=== PATIENT | female | born 1945 | race Caucasian/White ===

== ENCOUNTER 2018-03-25 09:54 | Emergency (ER) | payer MEDICARE ==
[2018-03-25] MEDS ORDERED: MECLIZINE HCL 12.5 MG TAB ONE (10:24)
[2018-03-25] MEDS ORDERED: NA CHLORIDE 0.9% 500 ML ONE (10:24)
--- NOTE | 2018-03-25 10:47 | RAD REPORT ---
EXAM DESCRIPTION: CT - Head Brain Wo Cont - 03/25/2018 10:36 am CLINICAL HISTORY: Dizziness for 1 week COMPARISON: none TECHNIQUE: Computed axial tomography of the head was obtained. IV contrast was not requested. All CT scans are performed using dose optimization technique as appropriate and may include automated exposure control or mA/KV adjustment according to patient size. FINDINGS: An intracranial bleed is not seen . The ventricles are normal in caliber. No extra-axial fluid collection is noted. Mild to moderate low-density areas within periventricular, deep and subcortical white matter likely represent ischemic changes secondary to small vessel disease . Fluid within the sinuses/ mastoids is not seen. IMPRESSION: No acute intracranial abnormality is seen. If patient's symptoms persist MRI of the bra in would be recommended.
[2018-03-25 10:50] LABS: Absolute Lymphocytes (CBC) 3.7 K/uL (0.7-4.9); Absolute Monocytes 1.1 K/uL (0.1-1.3); Absolute Neutrophil 6.2 K/uL (1.8-8.0); Basophils % 0.8 % (0-1.3); Eosinophils % 3.9 % (0-4.4); Hematocrit 34.9 % (36.0-45.0); Lymphocytes % 32.1 % (15.3-44.8); MCH 30.2 pg (27.0-35.0); MCV 89.3 fL (80-100); MPV 8.1 fL (7.6-11.3); Monocytes % 9.5 % (3.3-12.3); RBC Red Blood Cell Count 3.91 M/uL (3.86-4.86)
[2018-03-25 10:58] LABS: Protime INR 0.99
[2018-03-25 11:04] LABS: Potassium 4.2 mEq/L (3.6-5.0)
[2018-03-25 11:05] LABS: Magnesium 1.6 mg/dL (1.8-2.5)
[2018-03-25 11:48] LABS: Urine Blood NEGATIVE (NEG); Urine Glucose NEGATIVE (NEG); Urine Protein NEGATIVE (NEG); Urine Specific Gravity 1.015 (1.005-1.030); Urine pH 5.5 (5.0-7.0)
[2018-03-25] MEDS ORDERED: MAGNESIUM SULFATE 1 gm IVPB 1 GM/100 ML BAG IV ONE (12:14)
--- NOTE | 2018-03-25 12:21 | EDPHYS ---
Physician Documentation [facility] Name: Marilynn Hartman Age: 72 yrs Sex: Female : 1945 Arrival Date: 03/25/2018 Time: 09:57 Bed 7 Private MD: Gino Cruz ED Physician Franki Romero HPI: 03/25 11:06 This 72 yrs old Female presents to ER via Ambulatory with complaints of rn Dizziness. 11:06 The patient presents with dizziness, feeling off balance. Onset: The symptoms/episode rn began/occurred 1 week(s) ago. Modifying factors: The symptoms are alleviated by nothing, the symptoms are aggravated by movement of head, standing up, changing position. Severity of symptoms: At their worst the symptoms were mild in the emergency department the symptoms are unchanged. The patient has experienced a previous episode. Reports dizziness, feels like off balance, intermittent, lasts for a minute or so, worse with change in head position, no trauma, no other focal neurological complaint, no chest pain/sob/vomiting/diarrhea/abd pain. Has had vertigo in past and feels similar. . Historical: - Allergies: 10:11 Bactrim; aj 10:11 Biaxin; aj 10:11 Yvarzct-Exe-Pkh Reductase Inhibitors; aj - Home Meds: 10:11 losartan 50 mg Oral tab 1 tab 2 times per day [Active]; amlodipine 2.5 mg tab 1 tab aj once daily [Active]; metformin 500 mg Oral TbER 1 tab twice a day [Active]; atenolol 100 mg oral tab [Active]; omeprazole 40 mg Oral cpDR 1 cap once daily [Active]; - PMHx: 10:11 Anxiety; Diabetes - NIDDM; High Cholesterol; Hypertension; aj - PSHx: 10:11 Cholecystectomy; Appendectomy; Tonsillectomy; Hysterectomy; aj - Immunization history:: Adult Immunizations up to date. - Social history:: Smoking status: Patient/guardian denies using tobacco. - Ebola Screening: : Patient negative for fever greater than or equal to 101.5 degrees Fahrenheit, and additional compatible Ebola Virus Disease symptoms Patient denies exposure to infectious person Patient denies travel to an Ebola-affected area in the 21 days before illness onset No symptoms or risks identified at this time. - Family history:: not pertinent. - Hospitalizations: : No recent hospitalization is reported. ROS: 11:06 Constitutional: Negative for fever, chills, and weight loss, Eyes: Negative for injury, rn pain, redness, and discharge, Neck: Negative for injury, pain, and swelling, Cardiovascular: Negative for chest pain, palpitations, and edema, Respiratory: Negative for shortness of breath, cough, wheezing, and pleuritic chest pain, Abdomen/GI: Negative for abdominal pain, nausea, vomiting, diarrhea, and constipation, Back: Negative for injury and pain, MS/Extremity: Negative for injury and deformity, Skin: Negative for injury, rash, and discoloration, Neuro: Negative for headache, weakness, numbness, tingling, and seizure. Exam: 11:06 Constitutional: This is a well developed, well nourished patient who is awake, alert, rn and in no acute distress. Head/Face: Normocephalic, atraumatic. Eyes: Pupils equal round and reactive to light, extra-ocular motions intact. Lids and lashes normal. Conjunctiva and sclera are non-icteric and not injected. Cornea within normal limits. Periorbital areas with no swelling, redness, or edema. Neck: Trachea midline, no thyromegaly or masses palpated, and no cervical lymphadenopathy. Supple, full range of motion without nuchal rigidity, or vertebral point tenderness. No Meningismus. Cardiovascular: Regular rate and rhythm with a normal S1 and S2. No gallops, murmurs, or rubs. Normal PMI, no JVD. No pulse deficits. Respiratory: Lungs have equal breath sounds bilaterally, clear to auscultation and percussion. No rales, rhonchi or wheezes noted. No increased work of breathing, no retractions or nasal flaring. Abdomen/GI: Soft, non-tender, with normal bowel sounds. No distension or tympany. No guarding or rebound. No evidence of tenderness throughout. MS/ Extremity: Pulses equal, no cyanosis. Neurovascular intact. Full, normal range of motion. Equal circumference. Neuro: Awake and alert, GCS 15, oriented to person, place, time, and situation. Cranial nerves II-XII grossly intact. Motor strength 5/5 in all extremities. Sensory grossly intact. Cerebellar exam normal. Normal gait. Vital Signs: 10:11 BP 157 / 80; Pulse 72; Resp 18; Temp 98.4; Pulse Ox 96% on R/A; Weight 90.72 kg; Height aj 5 ft. 4 in. (162.56 cm); 11:11 BP 127 / 68; Pulse 93; Resp 16; Pulse Ox 96% on R/A; aj 14:30 BP 134 / 65; Pulse 82; Resp 16; Pulse Ox 96% ; jl7 10:11 Body Mass Index 34.33 (90.72 kg, 162.56 cm) aj MDM: 10:05 Patient medically screened. rn 12:09 ED course: Pt improved, walking without assistance to bathroom, w/u negative, most rn consistent with peripheral vertigo, will dc home with meclizine and neurology f/u.. 12:19 Differential diagnosis: cardiac arrhythmia, generalized weakness, hyperventilation, rn hypovolemia, idiopathic dizziness, vertigo. Differential diagnosis: CVA. Data reviewed: vital signs, nurses notes, lab test result(s), EKG, radiologic studies. Counseling: I had a detailed discussion with the patient and/or guardian regarding: the historical points, exam findings, and any diagnostic results supporting the discharge/admit diagnosis, lab results, radiology results, the need for outpatient follow up, to return to the emergency department if symptoms worsen or persist or if there are any questions or concerns that arise at home. Response to treatment: the patient's symptoms have markedly improved after treatment, and as a result, I will discharge patient. Special discussion: I discussed with the patient/guardian in detail that at this point there is no indication for admission to the hospital. It is understood, however, that if the symptoms persist or worsen the patient needs to return immediately for re-evaluation. Based on the history and exam findings, there is no indication for further emergent testing or inpatient evaluation. I discussed with the patient/guardian the need to see the neurologist for further evaluation of the symptoms. 03/25 10:16 Order name: Basic Metabolic Panel; Complete Time: 12: rn 03/25 10:16 Order name: BNP; Complete Time: 12: rn 03/25 10:16 Order name: CBC with Diff; Complete Time: 10:54 rn 03/25 10:16 Order name: Magnesium; Complete Time: 12:03/25 10:16 Order name: Protime (+inr); Complete Time: 12:03/25 10:16 Order name: CT Head Brain wo Cont; Complete Time: 10:54 rn 03/25 10:16 Order name: Ptt, Activated; Complete Time: 12:08 rn 03/25 10:16 Order name: Troponin (emerg Dept Use Only); Complete Time: 12:08 rn 03/25 10:16 Order name: EKG; Complete Time: 10:16 rn 03/25 11:14 Order name: Urine Dipstick--Ancillary (enter results); Complete Time: 12:08 bd 03/25 10:16 Order name: Cardiac monitoring; Complete Time: 10:30 rn 03/25 10:16 Order name: EKG - Nurse/Tech; Complete Time: 10: rn 03/25 10:16 Order name: IV Saline Lock; Complete Time: 10: rn 03/25 10:16 Order name: Labs collected and sent; Complete Time: 10: rn 03/25 10:16 Order name: O2 Per Protocol; Complete Time: 10:31 rn 03/25 10:16 Order name: O2 Sat Monitoring; Complete Time: 10: rn 03/25 10:16 Order name: Urine Dipstick-Ancillary (obtain specimen); Complete Time: 11:10 rn Administered Medications: 10:27 Drug: Meclizine 50 mg Route: PO; aj 12:00 Follow up: Response: Marked relief of symptoms aj 11:09 Drug: NS 0.9% 500 ml Route: IV; Rate: bolus; Site: right hand; aj 12:16 Drug: Magnesium Sulfate 1 grams Route: IVPB; Infused Over: 1 hrs; Site: right hand; aj Disposition: 03/25/18 12:20 Discharged to Home. Impression: Vertigo. - Condition is Stable. - Discharge Instructions: Benign Positional Vertigo, Vertigo. - Prescriptions for Meclizine 25 mg Oral Tablet - take 1 tablet by ORAL route every 8-12 hours As needed; 30 tablet. - Medication Reconciliation Form, Thank You Letter, Antibiotic Education, Prescription Opioid Use form. - Follow up: Duglas Moss MD; When: 5 - 6 days; Reason: Recheck today's complaints, Re-evaluation by your physician. - Problem is an ongoing problem. - Symptoms have improved. Signatures: Dispatcher [employer] EDMS Jaquez, Gilda, RN Franki Heredia MD MD rn Leal, Jahala, RN RN jl7 Corrections: (The following items were deleted from the chart) 13:54 10:16 UA MICROSCOPIC+U.LAB.BRZ ordered. EDMS EDMS 15:12 12:20 03/25/2018 12:20 Discharged to Home. Impression: Vertigo. Condition is Stable. jl7 Forms are Medication Reconciliation Form, Thank You Letter, Antibiotic Education, Prescription Opioid Use. Follow up: Duglas Moss; When: 5 - 6 days; Reason: Recheck today's complaints, Re-evaluation by your physician. Problem is an ongoing problem. Symptoms have improved. rn
--- NOTE | 2018-03-25 12:21 | ER ---
Nurse's Notes [facility] Name: Marilynn Hartman Age: 72 yrs Sex: Female : 1945 Arrival Date: 03/25/2018 Time: 09:57 Bed 7 Private MD: Gino Cruz Diagnosis: Vertigo Presentation: 03/25 10:08 Presenting complaint: Patient states: Reports dizziness x 1 week with movement or aj turning of head. Patient reports that she has an appointment with PCP this afternoon, but that she is just tired of being dizzy so she came to the ER when she couldn't get into PCP sooner. Ambulated with steady gait, in NAD. Transition of care: patient was not received from another setting of care. Onset of symptoms was March 18, 2018. Risk Assessment: Do you want to hurt yourself or someone else? Patient reports no desire to harm self or others. Initial Sepsis Screen: Does the patient meet any 2 criteria? No. Patient's initial sepsis screen is negative. Does the patient have a suspected source of infection? No. Patient's initial sepsis screen is negative. Care prior to arrival: None. 10:08 Method Of Arrival: Ambulatory aj 10:08 Acuity: KAROL 4 aj 10:08 Presenting complaint: Patient states: has had dizziness since last week, states that iw Dr. Cruz increased atenolol from 50 once a day to 100 BID and she was still taking her amlodipine and losartan, pt started having dizziness so she stopped taking amlodipine and losartan. Triage Assessment: 10:11 General: Appears in no apparent distress. comfortable, Behavior is calm, cooperative, aj appropriate for age. Pain: Denies pain. Neuro: Level of Consciousness is awake, alert, obeys commands, Oriented to person, place, time, situation, Appropriate for age. Neuro: Platform Stapler are equal bilaterally Moves all extremities. Full function Gait is steady, Speech is normal, Reports dizziness, since 1 week. Respiratory: Airway is patent Respiratory effort is even, unlabored, Respiratory pattern is regular, symmetrical. Derm: Skin is intact, is healthy with good turgor, Skin is pink, warm \T\ dry. normal. Historical: - Allergies: 10:11 Bactrim; aj 10:11 Biaxin; aj 10:11 Xejylmp-Bio-Nru Reductase Inhibitors; aj - Home Meds: 10:11 losartan 50 mg Oral tab 1 tab 2 times per day [Active]; amlodipine 2.5 mg tab 1 tab aj once daily [Active]; metformin 500 mg Oral TbER 1 tab twice a day [Active]; atenolol 100 mg oral tab [Active]; omeprazole 40 mg Oral cpDR 1 cap once daily [Active]; - PMHx: 10:11 Anxiety; Diabetes - NIDDM; High Cholesterol; Hypertension; aj - PSHx: 10:11 Cholecystectomy; Appendectomy; Tonsillectomy; Hysterectomy; aj - Immunization history:: Adult Immunizations up to date. - Social history:: Smoking status: Patient/guardian denies using tobacco. - Ebola Screening: : Patient negative for fever greater than or equal to 101.5 degrees Fahrenheit, and additional compatible Ebola Virus Disease symptoms Patient denies exposure to infectious person Patient denies travel to an Ebola-affected area in the 21 days before illness onset No symptoms or risks identified at this time. - Family history:: not pertinent. - Hospitalizations: : No recent hospitalization is reported. Screenin:28 Abuse screen: Denies threats or abuse. Denies injuries from another. Nutritional aj screening: No deficits noted. Tuberculosis screening: No symptoms or risk factors identified. Fall Risk None identified. Assessment: 10:27 Reassessment: See triage. aj 14:30 Reassessment: Patient and/or family updated on plan of care and expected duration. Pain jl7 level reassessed. Patient is alert, oriented x 3, equal unlabored respirations, skin warm/dry/pink. Vital Signs: 10:11 BP 157 / 80; Pulse 72; Resp 18; Temp 98.4; Pulse Ox 96% on R/A; Weight 90.72 kg; Height aj 5 ft. 4 in. (162.56 cm); 11:11 BP 127 / 68; Pulse 93; Resp 16; Pulse Ox 96% on R/A; aj 14:30 BP 134 / 65; Pulse 82; Resp 16; Pulse Ox 96% ; jl7 10:11 Body Mass Index 34.33 (90.72 kg, 162.56 cm) aj ED Course: 09:57 Patient arrived in ED. mr 09:57 Gino Cruz DO is Private Physician. mr 10:01 Gilda Jaquez, PENELOPE is Primary Nurse. aj 10:05 Franki Romero MD is Attending Physician. rn 10:10 Triage completed. aj 10:11 Arm band placed on right wrist. Patient placed in an exam room. aj 10:23 Note: CT SLIGHT DELAY DUE TO BRAID PATTERN SETTER STARTING IV. sw 10:25 Initial lab(s) drawn, by me, sent to lab. Inserted saline lock: 22 gauge in right jp3 forearm, using aseptic technique. Blood collected. 10:28 Patient has correct armband on for positive identification. aj 10:28 No provider procedures requiring assistance completed. aj 10:[address] via wheelchair. sw 10:35 CT completed. Patient tolerated procedure well. Patient moved back from CT. sw 10:36 CT Head Brain wo Cont In Process Unspecified. EDMS 10:47 EKG done, by truck engine technician. reviewed by Franki Romero MD. at1 11:00 Urine collected: clean catch specimen, clear, yoselin colored. jp3 12:20 Duglas Moss MD is Referral Physician. rn 15:12 IV discontinued, intact, bleeding controlled, No redness/swelling at site. Pressure jl7 dressing applied. Administered Medications: 10:27 Drug: Meclizine 50 mg Route: PO; aj 12:00 Follow up: Response: Marked relief of symptoms aj 11:09 Drug: NS 0.9% 500 ml Route: IV; Rate: bolus; Site: right hand; aj 12:16 Drug: Magnesium Sulfate 1 grams Route: IVPB; Infused Over: 1 hrs; Site: right hand; aj Outcome: 12:20 Discharge ordered by MD. rn 15:11 Discharged to home ambulatory, with family. jl7 15:11 Condition: stable 15:11 Discharge instructions given to patient, family, Instructed on discharge instructions, follow up and referral plans. medication usage, Demonstrated understanding of instructions, follow-up care, medications, Prescriptions given X 1. 15:12 Patient left the ED. jl7 Signatures: Dispatcher [employer] EDMS Gilda Jaquez, RN Cierra Fernández Irene, RN Franki Yap MD MD rn gonzales, Amanda, tower equipment installer EKG Tat1 Brittnee Chester Jahala, RN RN jl7 Darren Alanis jp3
--- NOTE | 2018-03-26 10:44 | EKG ---
Test Date: 2018-03-25 Test Time: 10:17:02 Clinic Office Manager: KEHINDE MEASUREMENT RESULTS: Intervals: Rate: 70 MA: 198 QRSD: 82 QT: 406 QTc: 438 [place]: P: 10 MA: 198 QRS: 14 T: 17 INTERPRETIVE STATEMENTS: Sinus rhythm with premature atrial complexes Otherwise normal ECG Compared to ECG 12/26/2017 13:27:09 Atrial premature complex(es) now present Sinus tachycardia no longer present Electronically Signed On 03-26-18 10:42:56 CDT by Bartolo Tucker
== END 2018-03-25 15:12 | disposition home or self-care (01) ==
LOC: ER 09:54
DX: R42 Dizziness and giddiness (principal); I10 Essential (primary) hypertension; E11.9 Type 2 diabetes mellitus without complications; E78.00 Pure hypercholesterolemia, unspecified; F41.9 Anxiety disorder, unspecified; Z88.1 Allergy status to other antibiotic agents; Z88.8 Allergy status to other drugs, medicaments and biological substances
CPT/HCPCS: 36415; 70450; 80048; 81003; 83735; 83880; 84484; 85025; 85610; 85730; 93005; 96374; 99284; J3475

== ENCOUNTER → 2018-05-30 | Day surgery (SDC) | payer MEDICARE ==
--- OUTSIDE RECORDS SUMMARY | 2018-05-30 08:27 | XMS REPORT | Continuity of Care Document ---
:1945 Author Organization Interface Problems Problem Status Onset Date Classification Date Comments Source Reported Medications Medication Details Route Status Patient Ordering Order Source Instructions Provider Date Allergies, Adverse Reactions, Alerts Substance Category Reaction Severity Reaction Status Date Comments Source type Reported Immunizations Immunization Date Given Site Status Last Updated Comments Source Results Order Results Value Reference Date Interpretation Comments Source Name Range Vital Signs Vital Sign Value Date Comments Source Encounters Location Location Encounter Encounter Reason Attending ADM DC Status Source Details Type Number For Provider Date Date Visit Outpatient [id number] [place] 04[facility]24 [facility] [id number] [place] 05/22 [place] [address] Saleem Procedures Procedure Code Date Perfomer Comments Source
--- NOTE | 2018-05-30 12:35 | RAD REPORT ---
EXAM DESCRIPTION: US - Breast Core BX w/US Guidance - 05/30/2018 11:10 am CLINICAL HISTORY: Breast mass ICD R92.8. COMPARISON: May 21, 2018. TECHNIQUE: The risks, benefits and alternatives to the procedure were explained to the patient and informed consent obtained. Skin and subcutaneous tissues were anesthetized with lidocaine. Under sonographic guidance two 14-gau ge 2 cm vacuum assisted core biopsies of the 3 mm hypoechoic lesion within the upper-outer right lupis st was obtained. Specimens were given to pathology. Subsequently a localizing clip was placed. IMPRESSION: Ultrasound-guided vacuum assisted core biopsies of a 3 mm right breast mass.
== END | disposition home or self-care (01) ==
LOC: RAD 08:26
PROVIDERS: ATTEND Internal Medicine Gastroenterology
DX: N63.11 Unspecified lump in the right breast, upper outer quadrant (principal)
CPT/HCPCS: 19083; 88305

== ENCOUNTER 2019-10-14 14:02 | Emergency (ER) | payer MEDICARE, OTHER ==
--- OUTSIDE RECORDS SUMMARY | 2019-10-14 14:05 | XMS REPORT ---
:1945 Author [facility] Address [address] [place] [address] Dr. Villegas [address] [place] [id number] Care Team Providers Name Role Phone Unavailable Unavailable Unavailable Problems This patient has no known problems. Allergies, Adverse Reactions, Alerts This patient has no known allergies or adverse reactions. Medications This patient has no known medications.
--- NOTE | 2019-10-14 15:57 | RAD REPORT ---
EXAM DESCRIPTION: Ethan Single View10/14/2019 3:13 pm CLINICAL HISTORY: Chest pain COMPARISON: February 2019 FINDINGS: Small calcified granuloma left lung The lungs appear clear of acute infiltrate. The heart is normal size IMPRESSION: No acute abnormalities displayed
--- NOTE | 2019-10-14 16:23 | ER ---
Nurse's Notes [facility] Name: Marilynn Hartman Age: 73 yrs Sex: Female : 1945 Arrival Date: 10/14/2019 Time: 14:10 Bed 24 Private MD: None, None Diagnosis: Bronchitis, not specified as acute or chronic;Acute upper respiratory infection, unspecified Presentation: 10/14 14:20 Presenting complaint: Patient states: Sinus infection and chills x 1 week. Transition jl7 of care: patient was not received from another setting of care. Onset of symptoms was October 09, 2019. Risk Assessment: Do you want to hurt yourself or someone else? Patient reports no desire to harm self or others. Initial Sepsis Screen: Does the patient meet any 2 criteria? No. Patient's initial sepsis screen is negative. Does the patient have a suspected source of infection? No. Patient's initial sepsis screen is negative. Care prior to arrival: None. 14:20 Method Of Arrival: Ambulatory [facility] 14:20 Acuity: KAROL 4 jl7 Triage Assessment: 14:26 General: Appears in no apparent distress. uncomfortable, Behavior is calm, cooperative, jl7 appropriate for age. Pain: Denies pain. Historical: - Allergies: 14:26 Bactrim; jl7 14:26 Biaxin; jl7 14:26 Hmzvbpc-Xvw-Qrt Reductase Inhibitors; jl7 - Home Meds: 14:26 amlodipine 2.5 mg tab 1 tab once daily [Active]; atenolol 100 mg Oral tab [Active]; jl7 losartan 50 mg Oral tab 1 tab 2 times per day [Active]; omeprazole 40 mg Oral cpDR 1 cap once daily [Active]; Januvia oral oral [Active]; - PMHx: 14:26 Anxiety; Diabetes - NIDDM; High Cholesterol; Hypertension; Cirrhosis; Non-alcoholic; jl7 - PSHx: 14:26 Cholecystectomy; Appendectomy; Tonsillectomy; Hysterectomy; jl7 - Immunization history:: Adult Immunizations up to date. - Social history:: Smoking status: Patient/guardian denies using tobacco. - Ebola Screening: : No symptoms or risks identified at this time. Screenin:29 Abuse screen: Denies threats or abuse. Denies injuries from another. Nutritional aj1 screening: No deficits noted. Tuberculosis screening: No symptoms or risk factors identified. 16:58 Fall Risk None identified. aj1 Assessment: 14:29 General: Appears in no apparent distress. comfortable, Behavior is calm, cooperative, aj1 appropriate for age. Pain: Denies pain. Neuro: Level of Consciousness is awake, alert, obeys commands, Oriented to person, place, time, situation. Cardiovascular: Patient's skin is warm and dry. Cardiovascular: Denies chest pain. Respiratory: Reports cough that is persistent Airway is patent Respiratory effort is even, unlabored, Respiratory pattern is regular, symmetrical, Denies shortness of breath. GI: No signs and/or symptoms were reported involving the gastrointestinal system. : No signs and/or symptoms were reported regarding the genitourinary system. EENT: Reports nasal congestion nasal discharge sinus pressure. Derm: No signs and/or symptoms reported regarding the dermatologic system. Skin is pink, warm \T\ dry. normal. Musculoskeletal: No signs and/or symptoms reported regarding the musculoskeletal system. Circulation, motion, and sensation intact. 15:30 Reassessment: Patient appears in no apparent distress at this time. No changes from aj1 previously documented assessment. Patient and/or family updated on plan of care and expected duration. Pain level reassessed. Patient is alert, oriented x 3, equal unlabored respirations, skin warm/dry/pink. 16:30 Reassessment: Patient appears in no apparent distress at this time. No changes from aj1 previously documented assessment. Patient and/or family updated on plan of care and expected duration. Pain level reassessed. Patient is alert, oriented x 3, equal unlabored respirations, skin warm/dry/pink. Vital Signs: 14:26 BP 138 / 93; Pulse 97; Resp 16 S; Temp 98.3(O); Pulse Ox 97% on R/A; jl7 ED Course: 14:10 Patient arrived in ED. mr 14:10 None, None is Private Physician. mr 14:23 Triage completed. jl7 14:26 Arm band placed on right wrist. jl7 14:29 Juana Jaquez, RN is Primary Nurse. aj1 14:29 Patient has correct armband on for positive identification. Bed in low position. Call aj1 light in reach. 14:29 No provider procedures requiring assistance completed. aj1 14:39 Reid Wang MD is Attending Physician. kdr 15:14 CXR XRAY In Process Unspecified. EDMS 16:58 Patient did not have IV access during this emergency room visit. aj1 Administered Medications: No medications were administered Outcome: 16:22 Discharge ordered by . kdr 16:58 Discharged to home ambulatory. aj1 16:58 Condition: good 16:58 Discharge instructions given to patient, Instructed on discharge instructions, follow up and referral plans. medication usage, Demonstrated understanding of instructions, follow-up care, medications, Prescriptions given X 3. 16:59 Patient left the ED. aj1 Signatures: Dispatcher [employer] EDND Junaa Jaquez, RN RN aj1 Reid Wang MD MD kdr Rivera, Mary mr Bryant Dillon RN RN jl7
--- NOTE | 2019-10-14 16:23 | EDPHYS ---
Physician Documentation [facility] Name: Marilynn Hartman Age: 73 yrs Sex: Female : 1945 Arrival Date: 10/14/2019 Time: 14:10 Bed 24 Private MD: None, None ED Physician Reid Wang HPI: 10/14 14:54 This 73 yrs old Female presents to ER via Ambulatory with complaints of Sinus kdr Congestion. 14:54 The patient or guardian reports airway noise, cough, that is intermittent, described as kdr mild, with productive sputum, that is bloody, difficulty breathing, flu symptoms, arthralgias, low-grade fever, myalgias, no appetite. Onset: The symptoms/episode began/occurred Two weeks with low grade subjective fever and cough, congestion since last Saturday. Severity of symptoms: At their worst the symptoms were mild, in the emergency department the symptoms are unchanged. Modifying factors: The symptoms are alleviated by nothing, the symptoms are aggravated by. Associated signs and symptoms: Pertinent positives: fever, nausea, Pertinent negatives: chest pain, diarrhea, ear ache, rhinorrhea, vomiting. The patient has not experienced similar symptoms in the past. The patient has not recently seen a physician. Historical: - Allergies: 14:26 Bactrim; jl7 14:26 Biaxin; jl7 14:26 Cjebczi-Vze-Ppn Reductase Inhibitors; jl7 - Home Meds: 14:26 amlodipine 2.5 mg tab 1 tab once daily [Active]; atenolol 100 mg Oral tab [Active]; jl7 losartan 50 mg Oral tab 1 tab 2 times per day [Active]; omeprazole 40 mg Oral cpDR 1 cap once daily [Active]; Januvia oral oral [Active]; - PMHx: 14:26 Anxiety; Diabetes - NIDDM; High Cholesterol; Hypertension; Cirrhosis; Non-alcoholic; jl7 - PSHx: 14:26 Cholecystectomy; Appendectomy; Tonsillectomy; Hysterectomy; jl7 - Immunization history:: Adult Immunizations up to date. - Social history:: Smoking status: Patient/guardian denies using tobacco. - Ebola Screening: : No symptoms or risks identified at this time. ROS: 14:54 Constitutional: Negative for weight loss has had fever and subjective fever Eyes: kdr Negative for injury, pain, redness, and discharge, Neck: Negative for injury, pain, and swelling, Cardiovascular: Negative for chest pain, palpitations, and edema, Abdomen/GI: Negative for abdominal pain, nausea, vomiting, diarrhea, and constipation, Back: Negative for injury and pain, : Negative for injury, bleeding, discharge, and swelling, MS/Extremity: Negative for injury and deformity, Skin: Negative for injury, rash, and discoloration, Neuro: Negative for headache, weakness, numbness, tingling, and seizure activity. Psych: Negative for depression, anxiety, suicide ideation, homicidal ideation, and hallucinations, Allergy/Immunology: Negative for hives, rash, and allergies, Endocrine: Negative for neck swelling, polydipsia, polyuria, polyphagia, and marked weight changes, Hematologic/Lymphatic: Negative for swollen nodes, abnormal bleeding, and unusual bruising. 14:54 ENT: Positive for sore throat, scratching. 14:54 Respiratory: Positive for cough, with rust-colored sputum, dyspnea on exertion, hemoptysis, Negative for orthopnea, pleurisy, shortness of breath, sputum production, wheezing. Exam: 14:54 Constitutional: This is a well developed, well nourished patient who is awake, alert, kdr and in no acute distress. Head/Face: Normocephalic, atraumatic. Eyes: Pupils equal round and reactive to light, extra-ocular motions intact. Lids and lashes normal. Conjunctiva and sclera are non-icteric and not injected. Cornea within normal limits. Periorbital areas with no swelling, redness, or edema. Neck: Trachea midline, no thyromegaly or masses palpated, and no cervical lymphadenopathy. Supple, full range of motion without nuchal rigidity, or vertebral point tenderness. No Meningismus. Chest/axilla: Normal chest wall appearance and motion. Nontender with no deformity. No lesions are appreciated. Cardiovascular: Regular rate and rhythm with a normal S1 and S2. No gallops, murmurs, or rubs. Normal PMI, no JVD. No pulse deficits. Abdomen/GI: Soft, non-tender, with normal bowel sounds. No distension or tympany. No guarding or rebound. No evidence of tenderness throughout. Back: No spinal tenderness. No costovertebral tenderness. Full range of motion. Skin: Warm, dry with normal turgor. Normal color with no rashes, no lesions, and no evidence of cellulitis. MS/ Extremity: Pulses equal, no cyanosis. Neurovascular intact. Full, normal range of motion. Neuro: Awake and alert, GCS 15, oriented to person, place, time, and situation. Cranial nerves II-XII grossly intact. Motor strength 5/5 in all extremities. Sensory grossly intact. Cerebellar exam normal. Normal gait. Psych: Awake, alert, with orientation to person, place and time. Behavior, mood, and affect are within normal limits. 14:54 Respiratory: the patient does not display signs of respiratory distress, Respirations: normal, Breath sounds: rales, are heard in the left posterior lower lobe. Vital Signs: 14:26 BP 138 / 93; Pulse 97; Resp 16 S; Temp 98.3(O); Pulse Ox 97% on R/A; jl7 MDM: 14:54 Data reviewed: vital signs, nurses notes, lab test result(s), radiologic studies. kdr Counseling: I had a detailed discussion with the patient and/or guardian regarding: the historical points, exam findings, and any diagnostic results supporting the discharge/admit diagnosis, lab results, radiology results, the need for outpatient follow up. 16:22 Patient medically screened. kdr 10/14 14:54 Order name: Flu; Complete Time: 15:49 kdr 10/14 14:54 Order name: CXR XRAY; Complete Time: 16:21 kdr Administered Medications: No medications were administered Disposition: 10/14/19 16:22 Discharged to Home. Impression: Bronchitis, not specified as acute or chronic, Acute upper respiratory infection, unspecified. - Condition is Stable. - Discharge Instructions: Acute Bronchitis, Humu-tq-Yvfa, Upper Respiratory Infection, Adult, Uaqp-xu-Qpos. - Prescriptions for Prednisone 20 mg Oral Tablet - take 1 tablet by ORAL route once daily for 5 days; 5 tablet. Tessalon Perles 100 mg Oral Capsule - take 1 capsule by ORAL route every 8 hours As needed; 15 capsule. Amoxicillin 500 mg Oral Capsule - take 1 capsule by ORAL route every 8 hours for 10 days; 30 tablet. - Medication Reconciliation Form, Thank You Letter, Antibiotic Education form. - Follow up: Private Physician; When: 2 - 3 days; Reason: If symptoms return, Further diagnostic work-up, Recheck today's complaints, Continuance of care, Re-evaluation by your physician. - Problem is an ongoing problem. - Symptoms have improved. - Notes: Watvh your blood glucose carefully while on the steroids Signatures: Dispatcher [employer] EDJuana Encinas RN RN aj1 Reid Wang MD MD kdr Bryant Dillon RN RN jl7 Corrections: (The following items were deleted from the chart) 16:59 16:22 10/14/2019 16:22 Discharged to Home. Impression: Bronchitis, not specified as aj1 acute or chronic; Acute upper respiratory infection, unspecified. Condition is Stable. Forms are Medication Reconciliation Form, Thank You Letter, Antibiotic Education, Prescription Opioid Use. Follow up: Private Physician; When: 2 - 3 days; Reason: If symptoms return, Further diagnostic work-up, Recheck today's complaints, Continuance of care, Re-evaluation by your physician. Problem is an ongoing problem. Symptoms have improved. kdr
[2019-10-14 17:04] VITALS: BP 138/93; TEMP 98.3; O2SAT 97
== END 2019-10-14 16:59 | disposition home or self-care (01) ==
LOC: ER 14:02
DX: J40 Bronchitis, not specified as acute or chronic (principal); I10 Essential (primary) hypertension; E11.9 Type 2 diabetes mellitus without complications; E78.00 Pure hypercholesterolemia, unspecified; F41.9 Anxiety disorder, unspecified; Z88.1 Allergy status to other antibiotic agents; Z88.8 Allergy status to other drugs, medicaments and biological substances
CPT/HCPCS: 71045; 87804; 99283

== ENCOUNTER 2020-07-31 13:58 | Emergency (ER) | payer MEDICARE ==
--- OUTSIDE RECORDS SUMMARY | 2020-07-31 14:00 | XMS REPORT | Clinical Summary ---
:1945 Author Organization [facility] Address [address] [place] [address] Care Team Providers Name Role Phone Jah Cruz MD Primary Care Provider Allergies Active Allergy Reactions Severity Noted Date Comments Sulfamethoxazole-Trimethoprim Hives 11/17/2019 Clarithromycin 11/17/2019 Medications Medication Sig Dispensed Refills Start Date End Date Status aspirin 81 MG EC tablet Take 81 mg by 0 Active mouth daily. atenolol (TENORMIN) 50 Take 50 mg by 0 Active MG tablet mouth 2 (two) times daily. amLODIPine (NORVASC) 5 Take 25 mg by 0 Active MG tablet mouth daily. losartan (COZAAR) 50 MG Take 50 mg by 0 Active tablet mouth daily. SITagliptin (JANUVIA) Take 25 mg by 0 Active 25 MG tablet mouth daily. Active Problems Not on file Encounters Date Type Specialty Care Team Description 06/15/2020 Hospital Encounter Research John Cooper MD 03/16/2020 Hospital Encounter Research John Cooper MD 01/19/2020 Hospital Encounter Research John Cooper MD 12/08/2019 Hospital Encounter Research John Cooper MD 11/18/2019 Hospital Encounter John Cooper er for examination for normal comparison or control in clinical research program; MD Taras Nonalcoholic st eatohepatitis (BAZAN) 11/09/2019 Orders Only Hepatology Liz Medina Encounter for examination for normal comparison or control in clinical research program (Primary Dx); RACHEL Tineo Nonalcoholic st eatohepatitis (BAZAN) after 07/31/2019 Social History Tobacco Use Types Packs/Day Years Used Date Never Assessed Sex Assigned at Date Recorded Not on file Last Filed Vital Signs Vital Sign Reading Time Taken Comments Blood Pressure 151/68 11/18/2019 12:14 PM [facility] Pulse 97 11/18/2019 12:14 PM [facility] Temperature 36.7 C (98 F) 11/18/2019 8:26 AM [facility] Respiratory Rate 16 11/18/2019 12:14 PM [facility] Oxygen Saturation 97% 11/18/2019 9:45 AM [facility] [employer] Inhaled Oxygen Concentration - - Weight 92.5 kg (204 lb) 11/18/2019 6:46 AM [facility] Height 157.5 cm (5' 2") 11/18/2019 6:46 AM [facility] Body Mass Index 37.31 11/18/2019 6:46 AM [facility] Plan of Treatment Not on file Procedures Procedure Name Priority Date/Time Associated Diagnosis Comme nts US LIVER BIOPSY Routine 11/18/2019 9:10 Encounter for Results for this AM [employer] examination for normal proce dure are in comparison or control the re sults in clinical research section . program Nonalcoholic steatohepatitis (BAZAN) TISSUE EXAM AP Routine 11/18/2019 9:06 Results for this AM [employer] procedure are i n the results section. CBC W/PLT COUNT & Routine 11/18/2019 7:11 Result s for this AUTO DIFFERENTIAL AM [employer] procedure are in the results section. APTT Routine 11/18/2019 7:11 Results for this AM [employer] procedure are i n the results section. PROTHROMBIN TIME/INR Routine 11/18/2019 7:11 Res ults for this AM [employer] procedure are i n the results section. CBC W/PLT COUNT & Routine 11/18/2019 7:11 Result s for this AUTO DIFFERENTIAL AM [employer] procedure are in the results section. after 07/31/2019 Results US liver biopsy (11/18/2019 9:10 AM [employer]) Specimen Narrative Performed At [facility]AL [facility]PORT [facility] Ultrasound guided liver core biopsy, 09/2020. Clinical History: BAZAN, research trial. Modality: Ultrasound. Sedation: Versed 1.0 mg and fentanyl 50 mcg intravenously for conscious sedation. Vital signs were m onitored throughout the procedure by a nurse, and remained stabl e. Physician intra-service sedation time: 15 minutes. Cloth Cutter: Jose Sheridan MD, EDWARD. Rn Concurrent Review: None. Estimated Blood Loss: 2cc. Specimen: Two 16-gauge core biopsy speci mens, placed in formalin and sent to pathology. Technique: Informed consent was obtain ed. The risks of pain, bleeding, infection, injury to liver/adj acent structures, transfusion risks, moderate sedation risks, and adve rse medication reactions were discussed with the patient. After info rmed consent was obtained, the patient's liver was scanned with the pat ient in the left lateral decubitus position. The right lobe of the liver was selected for biopsy. After the skin was prepped and draped in the usual sterile manner, the area was anesthetized with 2 % lidocaine. After a small skin incision was made, a 16 gauge Biopi nce core biopsy needle was advanced into the right lobe of the live r, under direct sonographic observation. Two passes were made with 2 core biopsy specimens obtained. Post procedure sonographic e valuation of the area reveals no hematoma. The patient tolerated the procedure well, without immediate complications. Patient Disposition: The patient was s ent in good condition to the observation area for vital sign monitori ng and bed rest. Impression: Successful and uncomplicated ultrasound guided core liver biopsy performed with conscious sedation. Signed: Jose Sheridan MD Report Verified Date/Time: 11/23/2019 18:17:28 Reading Location: [place] [address] Angio Body Reading Room Procedure Note Interface, External Ris In - 11/23/2019 6:19 PM [facility] [employer] FINAL REPORT Ultrasound guided liver core biopsy, 09/2020. Clinical History: BAZAN, research trial. Modality: Ultrasound. Sedation: Versed 1.0 mg and fentanyl 50 mcg intravenously for conscious sedation. Vital signs were mo nitored throughout the procedure by a nurse, and remained stabl e. Physician intra-service sedation time: 15 minutes. Cloth Cutter: Jose Sheridan MD, M BA. Rn Concurrent Review: None. Estimated Blood Loss: 2cc. Specimen: Two 16-gauge core biopsy speci mens, placed in formalin and sent to pathology. Technique: Informed consent was obtaine d. The risks of pain, bleeding, infection, injury to liver/adj acent structures, transfusion risks, moderate sedation risks, and adve rse medication reactions were discussed with the patient. After infor med consent was obtained, the patient's liver was scanned with the pat ient in the left lateral decubitus position. The right lobe of t he liver was selected for biopsy. After the skin was prepped and draped in the usual sterile manner, the area was anesthetized with 2 % lidocaine. After a small skin incision was made, a 16 gauge Biopi nce core biopsy needle was advanced into the right lobe of the live r, under direct sonographic observation. Two passes were made with 2 core biopsy specimens obtained. Post procedure sonographic ev aluation of the area reveals no hematoma. The patient tolerated the procedure well, without immediate complications. Patient Disposition: The patient was se nt in good condition to the observation area for vital sign monitori ng and bed rest. Impression: Successful and uncomplicated ultrasound guided core liver biopsy performed with conscious sedation. Signed: Jose Sheridan MD Report Verified Date/Time: 11/23/2019 1 8:17:28 Reading Location: [place] [address] Angio Body Reading Room Performing Organization Address City/State/Zipcode Phone Number GE RIS Tissue Exam (11/18/2019 9:06 AM [facility] [employer]) Case Report Surgical Pathology Report Case: [id number] CH Christy COLON Authorizing Provider: Liz Meier, Collected: 11/18/[address] [facility] Ordering Location: [facility] Radiology Angio Received: 11/18/2019 1400 Pathologist: Dana Hernández MD Specimen: Biopsy, Liver DIAGNOSIS LIVER, ULTRASOUND-GUIDED NEEDLE BIOPSIES FLOR COLON Electronically - STEATOHEPATITIS [facility] signed by Betty, - FIBROSIS STAGE 2 OF 4 MEDICAL [place] Sa kaylee MD on - see comment 11/20/2019 at 5:33 Signing Pathologist Direct Phone Line: [phone] PM COMMENT The non-alcoholic steatohepa titis activity scoring (DANNY) is performed according to guidelines from non-alcoholic steatohepatitis, clinical research network (Aram, et al. Hepatology 2005. 41:1313-21), [place]OR [place] at the request of the clini felipa, for research related purposes, if applicable. [facility] The DANNY score is: Steatosis: Grade 2 + lobular inflammation, grade 2 + hepatocyte ballooning score 1 = 5/8. The fibrosis score is 2 of 4. CPT Code(s) 13272, 96175 X4 [facility] CLINICAL HISTORY Participant in a clinical [facility] research trial-BAZAN [facility] SPECIMEN SOURCE [place] liver biopsy [facility] Anatomic source of tissue: Liver, [facility] GR[facility] DES[facility] The specimen is received [facility] in formalin labeled with [facility] the patient's [facility] accession number and "liver biopsy tissue, participant in clinical research trial-BAZAN" and are two 1.8 cm long and 1.6 cm long and 0.1 cm in diameter, koenig-brown liver core biopsies. The specimen is submitted entirely following filtration in cassette A1. HS/ew MICROSCOPIC Section shows two cores [facility] DESCRIPTION of liver parenchyma with [facility] greater than 10 [facility] tracts and is adequate for evaluation. There is moderate steatosis, predominantly macrovesicular type, involving about 40% of liver parenchyma. Ballooning degeneration with early Onelia Denk hyaline is noted. Moderate lobular inflammation is present. No acidophil bodies are seen. Glycogenated nuclei are seen. The portal tracts show mild chronic nonspecific inflammation. The bile ducts are preserved and unremarkable. Iron stain is negative. No hyaline globules are seen on PAS with diastase stain. Small clusters of portal and lobular ceroid laden macrophages are present. The trichrome and reticulin stains show prominent cenrilobular perisinusoidal fibrosis. There is focal mild periportal fibrosis. SPECIAL STUDIES The interpretation of this c ase included the use of immunohistochemistry or special stains. [facility] Control Slides Examined: In -house known positive controls were evaluated along with the test tissue. These control slides run alongside of the patients sample show appropriate staining. [facility] alexandre and negative controls when available are evaluated Immunohistochemistry technic al testing was performed at [facility], Pathology Laboratory where it was developed and its performance characteristics were determined. It has not be en cleared or approved by [facility] U.S. Food and Drug Administration. The FDA has determined that such clearance or approval is not necessary. The test is used for clinical purposes. It should not be regarde d as investigational or for research. This laboratory is certified under the Clinical Laboratory Improvement Amendments of 1988 (CLIA-88) as qualified to perform high complexity clinical laboratory testing. Specimen Tissue - Biopsy, Liver Performing Organization Address City/State/[facility] Phone Number [facility] [address] [place] [address] CENTER CBC with platelet count + automated diff (11/18/2019 7:11 AM [facility] [employer]) Pathologist Sig nature WBC 10.9 (H) 3.5 - 10.5 [facility] RBC 4.40 3.93 - 5.22 [facility] M/L [facility] Hemoglobin 13.1 11.2 - 15.7 [facility] Hematocrit 39.8 34.1 - 44.9 % [facility] MCV 90.5 79.4 - 94.8 fL [facility] MCH 29.8 25.6 - 32.2 pg [facility] MCHC 32.9 32.2 - 35.5 [facility] RDW 13.6 11.7 - 14.4 % [facility] Platelets 169 150 - 450 K/CU [facility] MPV 10.7 9.4 - 12.3 fL [facility] nRBC 0 0 - 0 /100 WBC [facility] % Neutros 57 % [facility] % Lymphs 29 % [facility] % Monos 9 % [facility] % Eos 3 % [facility] % Baso 1 % [facility] # Neutros 6.23 (H) 1.56 - 6.13 [facility] # Lymphs 3.18 1.18 - 3.74 [facility] # Monos 1.01 (H) 0.24 - 0.36 [facility] # Eos 0.29 0.04 - 0.36 [facility] K/L [facility] # Baso 0.08 0.01 - 0.08 [facility]/ON LICENSE OF [facility] Immature 1 0 - 1 % [facility] Specimen Blood Performing Organization Address City/State/Zipcode Phone Number [facility] [address] [place] [address] [place] aPTT (11/18/2019 7:11 AM [facility] [employer]) Pathologist Sig nature PTT 28.5 22.5 - 36.0 seconds [facility] Specimen Blood Performing Organization Address [facility] Phone Number [address] [address] [place] Prothrombin time/INR (11/18/2019 7:11 AM [employer] [employer]) Pathologist Sig nature Protime 12.9 11.9 - 14.2 seconds [facility] INR 1.0 <=5.9 [facility] Specimen Blood Narrative Performed At Effective 03/04/2019: PT Reference Range [facility] Change New: 11.9-14.2 Previous: 11.7-14.7 RECOMMENDED COUMADIN/WARFARIN INR THERAPY RANGES STANDARD DOSE: 2.0-3.0 Includes: PROPHYLAXIS for venous thrombosis, systemic embolization; TREATMENT for venous thrombosis and/or pulmonary embolus. HIGH RISK: Target INR is 2.5-3.5 for patients wiht mechanical heart valves. Performing Organization Address City/State/Zipcode Phone Number [place] [phone] [place] [address] CENTER after 07/31/2019 Insurance Payer Benefit Plan / Subscriber ID Effective Dates Phone Addre ss Type Group [facility]/MEDICARE [id number] 2019-Present MEDICARE MGD CARE COMPLETE Advance Directives For more information, please contact: [phone] Code Status Date Activated Date Inactivated Comments Full Code 11/18/2019 9:58 AM 11/18/2019 3:24 PM This code status was determined by: Patient
--- OUTSIDE RECORDS SUMMARY | 2020-07-31 14:01 | XMS REPORT | Continuity of Care Document ---
:1945 Author Organization [facility] t Address [address] [place] [address] Care Team Providers Name Role Phone Jah Cruz MD Primary Care Physician Taras Cooper MD Attending Clinician Anene SOFTWARE ENGINE[employer] Attending Clinician Lab, Fam Pob I Attending Clinician Unavailable TARAS COOPER Attending Clinician Unavailable Rivka Medina NP Attending Clinician TARAS COOPER Admitting Clinician Unavailable Payers Payer Name Policy Type Policy Effective Date Expiration Date Sour ce Number [facility] [id number] 2019 [facility] - MEDICARE MGD 00:00:00 - Medical CAREAA/MEDICARE Center [id number] 2019-Present Problems This patient has no known problems. Allergies, Adverse Reactions, Alerts Allergy Allergy Status Severity Reaction(s) Onset Inactive Treating Comm ents Source Name Type Date Date Clinician Sulfamet Drug Active Hives 2019-0 [facility] St hoxazole Allergy 2- [facility] 00:[facility] Medical oprim 00 Center Clarithr Drug Active 2019-[address] [facility] omycin Allergy 2- [facility] - 00:[facility]: Medical 00 Center Social History Social Habit Start Date Stop Date Quantity Comments Source Sex Assigned At [facility] Medications Ordered Filled Start Stop Current Ordering Indication Dosage Frequency Signature Comments Components Source Medication Medication Date Date Medication? Clinician (SIG) Name Name aspirin 81 2020-0 Yes 81mg QD Take [address] MG EC 2-12 by mouth [facility] - tablet 13:24: daily. Medical [address] atenolol 2020-0 Yes 50mg Q.5D Take [address] (TENORMIN) 2-12 by mouth 2 Chu es - 50 MG 13:24: (two) Medical tablet 43 times Center daily. amLODIPine 2020-0 Yes 25mg QD Take [address] (NORVASC) 5 2-12 by mouth [facility] - MG tablet 13:24: daily. Medica [address] losartan 2020-0 Yes 50mg QD Take [address] (COZAAR) 50 2-12 by mouth Luke s - MG tablet 13:24: daily. [facility] [address] SITagliptin 2020-0 Yes 25mg QD Take [address] (JANUVIA) 2-12 by mouth [facility] - 25 MG 13:24: daily. Medical tablet 43 Center Vital Signs Vital Name Observation Time Observation Value Comments Source Systolic blood 2019-11-18 12:14:00 151 mm[Hg] [facility] Diastolic blood 2019-11-18 12:14:00 68 mm[Hg] [facility] S [facility] Heart rate 2019-11-18 12:14:00 97 /min [facility] Respiratory rate 2019-11-18 12:14:00 16 /min [facility] Oxygen saturation in 2019-11-18 09:45:00 97 /min [facility] - Arterial blood by Medical Ce nter Pulse oximetry Body temperature 2019-11-18 08:26:00 36.67 Nicolle [facility] Body height 2019-11-18 06:46:00 157.5 cm [facility] Body weight 2019-11-18 06:46:00 92.534 kg [facility] BMI 2019-11-18 06:46:00 37.31 kg/m2 [facility] Procedures Procedure Date / Time Performed Performing Clinician [facility] e LIVER BIOPSY 2019-11-18 09:10:[address] [facility] TISSUE EXAM 2019-11-18 09:06:[address] [facility] PROTHROMBIN TIME/INR 2019-11-18 07:11:00 Lucina Polanco [facility] APTT 2019-11-18 07:11:00 Lucina Polanco [facility] CBC W/PLT COUNT & AUTO 2019-11-18 07:11:00 Lucina Polanco [facility] Encounters Start End Encounter Admission Attending Care Care Encounter Source Date/Time Date/Time Type Type Clinicians Facility Department ID 2020-04-17 2020-04-17 Telephone JENNY Ribera [id number] 00:00:00 00:00:00 Charla REAGAN [id number] [facility] [id number] 2020-04-15 2020-04-15 Laboratory Lab, [facility] [id number] 07:48:18 08:08:18 Only Fam Pob [facility] [id number] [place] [id number] Professio [id number] nal 0[address] One Results Test Description Test Time Test Comments Results Result Sour e Comments U/S, BIOPSY, 2019-11-07 Reason for FINAL REPORT LIVER 7 Exam:->Participa PATIENT ID: 18:17:00 nt in a clinical [id number] Ultrasound research guided liver core trialReason for biopsy, 11/18/2019. Exam:->BAZAN Clinical History: BAZAN, research trial. Modality: Ultrasound. Sedation: Versed 1.0 mg and fentanyl 50 mcg intravenously for conscious sedation. Vital signs were monitored throughout the procedure by a nurse, and remained stable. Physician intra-service sedation time: 15 minutes. [employer] Sales Representative: Jose Sheridan MD, EDWARD. Industrial Tractor Driver: None. Estimated Blood Loss: 2cc. Specimen: Two 16-gauge core biopsy specimens, placed in formalin and sent to pathology. Technique: Informed consent was obtained. The risks of pain, bleeding, infection, injury to liver/adjacent structures, transfusion risks, moderate sedation risks, and adverse medication reactions were discussed with the patient. After informed consent was obtained, the patient's liver was scanned with the patient in the left lateral decubitus position. The right lobe of the liver was selected for biopsy. After the skin was prepped and draped in the usual sterile manner, the area was anesthetized with 2% lidocaine. After a small skin incision was made, a 16 gauge Biopince core biopsy needle was advanced into the right lobe of the liver, under direct sonographic observation. Two passes were made with 2 core biopsy specimens obtained. Post procedure sonographic evaluation of the area reveals no hematoma. The patient tolerated the procedure well, without immediate complications. Patient Disposition: The patient was sent in good condition to the observation area for vital sign monitoring and bed rest. Impression: Successful and uncomplicated ultrasound guided core liver biopsy performed with conscious sedation. Signed: Jose Sheridan MDReport Verified Date/Time: 11/23/2019 18:17:28 Reading Location: [address] Body Reading Room liver biopsy 2019-11-07 Interface, External [facility] 7 Ris In - 11/23/2019 - Med ical 18:17:00 6:19 PM [facility] REPORT Ultrasound guided liver core biopsy, 11/18/2019. Clinical History: BAZAN, research trial. Modality: Ultrasound. Sedation: Versed 1.0 mg and fentanyl 50 mcg intravenously for conscious sedation. Vital signs were monitored throughout the procedure by a nurse, and remained stable. Physician intra-service sedation time: 15 minutes. [employer] Sales Representative: Jose Sheridan MD, EDWARD. Industrial Tractor Driver: None. Estimated Blood Loss: 2cc. Specimen: Two 16-gauge core biopsy specimens, placed in formalin and sent to pathology. Technique: Informed consent was obtained. The risks of pain, bleeding, infection, injury to liver/adjacent structures, transfusion risks, moderate sedation risks, and adverse medication reactions were discussed with the patient. After informed consent was obtained, the patient's liver was scanned with the patient in the left lateral decubitus position. The right lobe of the liver was selected for biopsy. After the skin was prepped and draped in the usual sterile manner, the area was anesthetized with 2% lidocaine. After a small skin incision was made, a 16 gauge Biopince core biopsy needle was advanced into the right lobe of the liver, under direct sonographic observation. Two passes were made with 2 core biopsy specimens obtained. Post procedure sonographic evaluation of the area reveals no hematoma. The patient tolerated the procedure well, without immediate complications. Patient Disposition: The patient was sent in good condition to the observation area for vital sign monitoring and bed rest. Impression: Successful and uncomplicated ultrasound guided core liver biopsy performed with conscious sedation. Signed: Jose Sheridan Verified Date/Time: 11/23/2019 18:17:28 Reading Location: [place] [address] Angio Body Reading Room Tissue Exam 2019-11-20 17:33:00 Test Item Value Reference Range Interpretation Comme nts Case Report (test code = 104) Surgical Pathology Report Case: [id number] Authorizing Provider: Liz Medina, Collected: 11/18/2019 0906 VINYL INSTALLER Ordering Location: [facility] Radiology Angio Received: 11/18/2019 1400 Pathologist: Dana Hernández MD Specimen: Biopsy, Liver DIAGNOSIS (test code = 3220) z6fyxDPzARVpv5nqQUAanPNkJqOfUvHvRcPkKr pc rJCcEXilreYiMXzdz0NiT8CzYkIkTOrzshBcOASs EbaxfclxVAZdDUR5rmTyAOKcCXtyKAEqSHsdGu1l pNMmzErqVsDlCFXrs1kcmcIVozhjzTc1pUyrS09k c3M3EdhaB3fyOYOmCVCqJ1MaRY5hUNPjOtn6GWX3 ATJ5OBCaRRCoM8FnZW7gQMBdaRGpBTp6v9upeAbt VDYvOPY0p1moJBaeyoDdHK5odq6kmQc9z1rwfhQm FVCzNIXwrWXVJONjY0GcrUgdHe9duGy0dJslSfqb CYL9Lbn2IW1ixo18vfc7pMctIFUstntrZwF3OHpf UTIrciosZRo3TMplPXXoeUxaBZfxSTOoucngJUqz YKTdgUhkXFhmZWLfTzypHRwvNXSrEWB5INpyv800 BMB2LTxpt0sgk0eehTSxKru6QTPtThAdUauoXWdc o2Knp8jeAVXnuc2wSJS3bOGfyTygh6Z9rNMnPFOs yYKwglGeDIZlAqG4VUasBD9zbo09DMEqNTV0xh1g uSUrhLtnreCahRLwFBqlX5PtUCIqn248RURkJ4Dg TJQwk5V9xfUrZqOsPVYchJX9dwB2VPNlXSo2sFUy zzP3soWzzBJvA2hksA05MlTmeMJdX0EfdK17DbHa zRIaP9QecI82SgCtvGDkY9KeyQ22OjXgnFBuBNIm eNIpTz5evQPdgUAne9QhmBEeUSyfN98va865UQRa xmItJ8gudSXvvsttcGWkknpmDYoaleO0QMKoJSJj YWluXGYwXGZzMjBcbGFuZzEwMzNcaGljaFxmMFxk FkPiTVEkZRliH5wcDoVdIfKsWGRZLPDVTjbnYEpP CvGBV7BRPN8JMDpYZIDtDoUFDWxDREXII5WPIOKQ FPYotpYqWATMESGIS0wBVTXSHXHMA3wrPNExTUFX XPWJA5GVDhXOSLQDBRGmXN7RMLIgaRZaVP2it0Qr FRQltY7cerHebFRqySgqwtPzQEmmd2BiRWloSRHl HT1egHayGHNuNN6cIWLuM2sdgU7fkcd7VdKyUUUh MlU4FVIpeyX4Qwl9TOWoZSura9zsf3BeXANmLSy7 vLxtLyUcFJKly4wbbuYxIhLhQDYpKQBtSUPqvDYx K992m0lfo2jborLlhRU4QNPaQNN8QMayhfOkfrV4 THahnXTlPvI2NQjqjbNnQAkjaxBkgjVqQeu5XUKo D677BLF6pAqfb9rdFDI9QTStPKSmWtLtUb3jsHOp O977AJCqRBAOQUGeuWx7UREbmvQeiyQiqFOMn079 F725r5weGMKapkYemFxQbdwif7mlO505FFRozPXj qeDlZfWmEMAlgYZdrXN7SVCsNO7neezjTJkdLIzc YTVugpF2GUMzzHMzG0ZhGIWzSS0ajjtrJVG4EKtq XTGcTLT4CqXxUMYme5Edcmt7QbEsei7pha45FPZ1 v3WadYmgHJX0EYQ3AwCaLo4coDAiVACgGZ1mUfRw yZNmAMApbj68hOpmAVdcVDM2CWEowlVhj1Lfr9iy FhUubzOcX4ylM0XjULIuAFGaSDYySqFysgYjk4Dy t3GqzWVcyRi6x1qxREJmKUKutIdwl7nrEXK3TTQn tQWsW9xqbP3lDRLzVV2ebkuam0czJEkfZEnkVYSm gZR7mkI7CZQpbFPwB5IjzK8dQUUwIDkyGBQiguf7 NjDtWy3tcGBkyBehOMidLqfgQMffOKAygyUaslHr cGduZGVjXHBsYWluXHBsYWluXGYwXGZzMjRccWxc qWPfJsNeQpTyjTyarVsuAUxdFtDyGXJrNLpwB0es QmHuPeUjWdw8MLIchUWdPRXiBzm5AIIfeLAoDZJQ kHshiA0hNITywIjzlO5chSL2NGAoetBzqKPSaK2g TYMRcG6fAcL0RyWyGlM9MQFzFBtpwIBrvV0= COMMENT (test code = 3359) k3otxVNkFLDmvHAvQxZpRCWpZHYny6hoTJTkcMVm GiHsOiUrWnQuUxyuzBFoXGJyCtLqh9bsb636eKYz p3gmAPXhTgG0wWJqMFOefBDvM045XSGiMJpjt1db p1JtMYSjuKHnu6L4MHBNimpwkIu2lFcsB77db9I6 OjgvV3ofFKGxVTzqKAPfMLwjnNPgTDW2YLYsYEC6 PGpfxoXvblO2IUzfqQGoYlP7KAp2n3piiCltIICk UES1e3rsQBpjosKoFP7tqm1vaLc9l1acinAsUVIb FDZcgZEVVKCzF2IeaAywWz7ggSh7vKxuUnalYXJ7 Jzj4PG9ody77zhl3pVovWCVstqqyIoU7BPcdNBTq mfxdSXl1ONweLTVcjZhmKHtzHAIiamkfWCxgCGAl wMzkCMvvLMGpIvqfYNtcYLQmDQL2UXibr895AGU5 HAawz3pdd7uqfEHdXwo2XEIzApGtKtcoWRhtl9Am g4qzCRZtud8pJGT5vVGxiWunv7Z9lCHkODHajGOe rqClMWDzDxD0FTntBH7rcx91YLNbHON1qo9goREg fWdjtbCtiNHgOUweC9QnMAZyn050WLFtF5QsVJTn p5Z1reZqBsHcVXKhrKI0uiE3RXQkRLk9gJHfisC0 seUybNHwC7hifY98EtSvsEGjS9FylC90KiYkoKOs L8KiyX41WfUhpQGhF1SliK45KlJjlWFmNZGquGWy Vq7zwVAxwHTzo5ZgaEZbQYdrB22dk644IFYzmpHd M2mcxLYqzoqqbAEysezyEGonhqJuQSMgWJGyOMzr YEFqOPAkGlIueMsdhM3zIlAbFoHyLBEKpXHeuj7d QHQdX12md9dnJqZdvKXhwV9hVPFwqBa4fPOfNTW5 fZUiwFhjk8HptwadMpZtOeSRZXAmkaBjJDNtb0Un WOIiFCEwj3BgtI9oODCsOCe2jAZocRbrFKTqUwEa yPTui35yQVvxu9rojYpwIIT6LLJ3f4anzRK2rNEe xentG7tocxvcLRayzyMlDMFjN3gmseQ9w43zepQp S1fxqF3icrfiIHSrTAjdEGbftHQ6p5llN4urVvNq LN5iVDS1ZGChFq9mHOmyXRT7QZAtLTEeGBS9ISQ5 QR7nIDQuXACvzCpmtNXmVO5xUNJcasVuUFKmEJAb sECvXWvngZMjEKE0mpCcg6XnNSEqDrGivGNckMId IsegKrnhCRPhoEJdREUeXCQSYYOlh5LvvkHquDO1 CFQ0XYM4a3FdxiciI9KkRXCcXhTlFRpuMcXjXEFz uO1tbYGneWU8gI0dUQFcbcUnZYYgRQcvgBVyGFFk K9l8HXByTEbqo56duV3zBDKzq5YlRFFmFUQ0Eeha NEXlGLAccCDru6RvptVnL13hCQOidwAdZW4fTMTu XHBhclxwYXJccGFyfQ== CPT Code(s) (test code = 3357) z1jrgKZcMKBedTJoGpXeWXBiKUKef3ntVZMf bGFu DsBaUgEaLvWyWicdyHMrCNByXhLkt3klh186oNCv q4qcJAImPlP4sJBaRJOqaEUyT612w4gvl1mattHr vYC8YTBgTMB4VPiglbTaxsV4HUmeeVCrQxG5NZad ywRxXPtzylUqfcAzRaw8KCAcE497UIV7tCzrc5zl RNS8TIXjNDJeKiGuOo6nwSTtY552ZXDyKIRQVJBx lEz7FQPfnuEpdkLmsKFQw579S033p7epAHFyltQk cFrPcunkg5cqS116RNKezGFidsWdDwZaQTKovHXw cMA0UEGvOT2shfixApHqLR0bdpclJvWkJQ6fnve5 WwYsTI9dkmtsGqAtABgwZLMsjejdQREwu5Bwszzg UH6fJ4Xkn3O9gQ0ofFMxTQPwvTSuNuNfUXWcky4u yDUpURbhz9EbCLS1buO8vUPakOOqUJDtPV40Vdxe o0OfMkbxXUX1BDBcsfGap6Whr8xvIdSrvkVzH2wx P7IwKPMiMKQoYHSlKoBxsoGps8Yhr3DiuJEarBf8 y4gxMTPtQKQurWxhm8biTOE4GRKhL7K6qDWtl7fy CJphJTAlwEW3jiuxXXnlEKPbxxN9kcmtFLsfLMGr zZC9zsstRHkiOAFmCyX2mmwwFBqoEXKoGHH7YXrs m580EEW4KWwxOuqyDSmgKTYxbmDcpzAggVirIADa ENQkEDqtCIMoXVrfUPSjCPBvKaDgsXnkfYpjeW9c LuGdMoLtMOpwNB9wBIGqF4eqoYXlPDJjQFVuC8gl WdPanT4xhZrbKMibilPdZJk1DeK2AWF4GUIfLmHM NFxwYXJccGFyfQ== CLINICAL HISTORY (test code = 3356) u8jafTZrVNDezDUlObIyPBLiEHKww3n cZGVmbGFu DaPuExTjOdPgWkiczPYdHFUuZzHfq5kcm162bPQk b4dhONSxCuK9rEVeNZDnwYHsI082c1ceb0fwwdBp nSU5NZNaLIP0KPvpglGfqpQ1KClkiNMmYaE1PBgj xcLvWNmdmnXiogRrGro0MDZzW193KDJ1uNqje4uf GWB2MORuIJKoCqTwHg6kuSSpI599ZZGxLRMVXDFl pFm9MPHfxkDfprIxfSNHu099W490u3hiZVBlerXo eLcRdokbt7xwU617ERGsrJIdygVjXnPaPGOxaJJw sVH1NDSxZH2deyvvIsGeJG7mltelMjPfJN9gvvq0 FoAhEF6kmiudYcBoWYbqUVZnsvvbEMFxg3Grkafg HB9sF8Tzg2S9tM7ndOSePYNfvCFkMaIiVYVezd0s yPRxWWffc7JuOTU5mcL1qLXkpHUgOGWhDS48Lper k8ZdLkzzDUZ7GLLowjMzx8Ewk8hhLjXnvrFlY9tu I5OdXFFyEJUpZUYaYsFfjjSvk7Vfa4DhwQLaxHu4 o2haIMOlHBNmcJatp3vfVNE6XCAuA5E3pFBrw0sp DTcdSZOupBO4vrrqSQeoIYKhlwC2qnrzYZblLQWi rXV7mkkxHNtbNSFnSjN6tjxsQRboXOBtALF5RXsh t837DOM9JSbsOxbwCQbeTQBiqwBzotEbtPzzFYOr ONBeEQkoKKOoWWuvPOImZGDvOlYxrKaixNgbaC1e KcDuJoGgZKnaCO6hPJVgM0lwuYWxDQNtTDDuB7mi WgJpkR0eiQukMFdszdNbSOSuckUfN6kqZQ02GMns MAMhQ8eococlHMokvnFmGQPyO3qwzKIuAEkhCiFT SFxwYXJ9 SPECIMEN SOURCE (test code = 3377) h1ytvYQcIKOetBMxAwZcNMYjWOBze5fs ZGVmbGFu NdIgZtCyCqOjSmxpyPEfTNPgPoHjc6ilo099mWLn k4viOSJrBcL6sRCpJRYebTDsP948r2dpq1wucnSw mEL3JGXzAOE8ZPuggoLhhkR4TOggkGMcOvG9NRmt sdOpMPcsmwWxwcTqZme5RVCxX338WMV9cNjtx2pt HHM9LFOjSMRzMtVnGu4ecHDuA350RWWtXUOSGJDg nTt4EBYqomMnyhBpsNTXm052C920e5rcXKWistVv uLjYuucip1epJ040JLKyvKQtqbCcLeKvGGUanNZk jAV0GZWgAV2ozezcQvLbMB1lkttbAvNxBH3ofns2 EoPzVF7hfgkaZxAsDYlfAOCamkbaJWGdz7Edmsjv FR2vG5Qxe5A3pA9piUUaSUWeoHIeWlUeDMTtim4u oGPrRWlyo8FoNID8izT7xGFopYKkAFEaEU76Umkc h6KeYscoPVI0CTUrbkZkm5Wfc0dsSqDfmhJiO2cf G1PaQXUiNGLtCMQmSmMmqoRzs6Qzl3SyyOCgoCb5 n5jiXVUjQRJrgRqbq0zwBEP5QLBbQ0D8iUOyq4yb UOayRFHorAO8gyynAWxoDHZjrdP0csabNTgiSIXj oBK2rndtMDxbUHOlLeC4ecxjEZgdSOKeSTI9ZVlw i208GXG5UFiiEhfbLAovGQLmqdHzyyZawGmfBUHs QJRgQMscHOVuWOpdKIEiLLRuFuEjeGowvQsizM9b DbGzFvSrRKlkVI6rSIIrU2kijZJnYOYkUPNoD3rj BePqyP1uiHinAOnkwmSwJN2omUg5EPZswQWssuOs cH6xt7osPBGfepMEzkX7k17iIzHwp7OnV9Roq0Pc gXsgn6XcFmHGaHVgcccbophgvSBjWCSxmv5= GROSS DESCRIPTION (test code = 3366) g5dtzGEnFZLocEKuDcNbGNBuKFTvq6 lcZGVmbGFu [file] NPwtTPKgz1IstJDrQNEkYnKYMr6ts8uvBWK8 MICROSCOPIC DESCRIPTION (test code = a6zqdGAsHLMoxXEmEoDsJOBdIWQhc1 [place] [address]) WwXzFpOvJjOzSlnteCEfBZEaSxQka2xje105mACa x1oaTCHwXkS4hSMdTFCsdSGtE404CKCzJFoye3ns m8SlDJJecTGtb8Q4XOZDlqbptRz7lEuoU28xb8L9 ZkezQ3zxYWNsYBKlI2SoER1uTTDgVij0TJB2UEA3 FVGiYACnM1ShVE3iIBRapOYoDFk4u4nlnKieSDTu FIU6e4yoLMrqtdEiDE3rdk9ecJj5o6mbekQhNZWg NJDgoJSDZFKsU1KdxUahOd5woSe0jZtpHaqeMHH6 Stw4BS6uow88qcl5fQxlNQHuvbgkLkK5EZhkOGHj halnUBd1QClwTNAueFreZDjgHDPelualECrfPIUx aKyrMKkeUEEnGoyyCUevGDHjNLG1WJtsg433QTQ7 RPvcw6iim7bduAXlSvd3DMIzBlTvNkyiDVioj7Km f2vwQJKmcz1cYBF2kVTscCbbn9O2pALiYXDbwVNv pkWnWESrWdN4FSfpBU7njg00ROUyRJD4ei0ywPJp wVlsetXccVDtVTpzY0HvDHLaw773TVWeH4PiNKRi m4K8qaXmWxZfGQLaaYP5sqY3GYEtFBl0sOVxwkG3 kpRavTFpA3efiU70KkMlnCJxP1OopP65ZsNvsEJp O5FaoL55QwHocHShX2ZnrH74VyFsgNAaNZKsnJKt Es8nrDJabDEmr6FarSMvOSpvY18ti573YQMixcCx A7ionTQkivgxcAOgsdyqHIfwkvU1PXLaTPXhYRov XGYxXGZzMjBcbGFuZzEwMzNcaGljaFxmMVxkYmNo [file] reQhlUIziNLhk7Xqgu3lUMMshu6= SPECIAL STUDIES (test code = 3376) l6xcqAMcXFYrg4kmQEOpxNUlHmAuMsWp ZnRuYmpc bOUqNQvjgpYxCLjet9BdS8EmOnJdDFkxsdBqWRXg DwhcflqdNSWqMSP1bmGqQFXmYAfbMCSkRNogNy6q kCLxyFvsNgOhJPIsu1lnptBIewhcqKi6a8byKEWc LyH3xJJfHPdwF2eqnhVidYJhE1UdfUKrnIn2a6hd JyQtGjH4tBLeUYzeH2xzugIjoAXbBVVzGLa0lG70 IVXerB8lzHCwUHheyzWrTtR7EBvbZECoOfB4JMSv gVMwJRXdG0wxQOGoYCuqMQQzEZumaKWoZHX7sKdb g2I7fVLjqFIflPuySmMrOgXbQfFNp3AlPHf1ePba F1QoYPBqHsL5kGXnCQOrEXmuBZHzRBVjtbA7iQux whDms49snRDjPACvNAUkQoVpkJxxQBHeUHQPh3Zk bKfmHCG6jRz2aKynCoheHCJ6Vka8FZ0yey57zxi5 tSyiVVWwlttrOfS4FQbkZNZawmylTCt9FZyaKLWd xST5DYPpcNNjP1AnVIMtHP6fafd2RSD9ZVteIFGl XyA3DITqdXEtQITjdVhkFEcic405TQN4UuFzRW8f E2Uzc5G3kQ5tvDHeKEOfiSVcHxWpBEDvjz3rvBKi ZTalt2EaOHH1aqD0qQZhoJNwLREbBK84Uyrbs3Jc Uaqey2EoJ54krSL0VOwvi9mpBS8pGeR9rwJpJCix y4qrjT5iYgZ9GUtcKG0pFQ4sXWDmmU3obckjADGa YeSmypleYGOjqOjiesDiYp6veLfmTRG9ERhlI7wc oB3oFhH7REuiZ9rudU0hJMc7QZmwcUA4KCHgmQ8z WT7ebdrgg5hoMWncQRrrYMJupcC8anX4HNPtgVSp P3EhoL3yNEEfHW7gnszog4slDEG1PTrgJXIfUHO2 DcDnTFMkm0Fqroe1KbGqp6JhuZJsNJygV10sj569 FGPoonOwY5rklSJockiqeJWmrvxdYQgrasU4QVTi XHBsYWluXGYxXGZzMjJcbGFuZzEwMzNcaGljaFxm UOtlHiWrSLDqFQidY7ayTaFuI8YrOQUmLtYtAWyg MNiirGRgfZFwkGF1eU2zUX6nZLFbdLRtJ5WqJPAl mgMwxGDgAFG6lOLkkZKoCK6yFSdfkEVsx2ggy6Ro R1qgrJetlKY0VA1pVDLiNCLkCRzci0BvqV0vBonz eODpqsgoPXvbmqZgQQilvtalAIOiVOgzP6zaFvCl JJXnkFotPUiry3XtMZTuQEZgLycyoeDtARm7wjDy XVBsdkxuUIAtyRdxiG1dXsArTjFvOjdjWH2xZTXv O4nveWQxTZMsCWMvD2nmVaJfgO6tcLdoZKldJkJd VfRbNdUWa161mn6dZFQpaNFtntZCbZTfdU0lZQwx FZtqPUoakIYeUOsrw3qqLKRxj5c7hXQvKREzgeSc u6yaOHtiqvIlRRUywTIowVBlATZrr25mFAodhYlh sEbrKIVqf2PrsCgku2QfXuDiFVqvz6OrI61xoPJl kMKvhTozATKwhjRlQUFky47hu0koTNNoIhC5mAYv zTL2uAQuqMTcn2FzbDmfKXUrk8yfGSWdyp5emkwp eKDsr1MwnC9lrvixWOmgxYBtnkFkKBZzz4h0pCZc LOWoHIBpNMkidIs5RYSrm247ra9hweO6tFMoWBK8 YWlsYWJsZSBhcmUgZXZhbHVhdGVkXHBsYWluXGYx XGZzMjJcbGFuZzEwMzNcaGljaFxmMVxkYmNoXGYx SRtoM7feMnDuK0OqOZFcZsFbcALfQ4yvuYFeRDXr YWluXGYxXGZzMjJcbGFuZzEwMzNcaGljaFxmMVxk CsVwZKEoGGvqT9hcAbHkN4TyDCKfVtSxLJkqsMTt uwcdVJeghzSxCTswtvixWVMrDOinL6yaTgWbRXIz oVcrHCdvv9NzRWTdFNDiXnjhhpFqXIh4ktChOMCn snzjgELnsiafJUphoaFgBGwdojtkBOPbVQkyT1xu [file] PhwkRAB3yJ== [facility] [id number] 17:33:00Surgical Pathology Report Case: [id number] Authorizing Provider: Liz Medina, Collected: 11/18/2019 0906 [employer] IN[employer] OrderingLocation: [facility] Radiology Angio Received: 11/18/2019 1400 Pathologist: Dana Hernández MD Specimen: Biopsy, Liver LIVER, ULTRASOUND-GUIDED NEEDLE BIOPSIES- STEATOHEPATITIS- FIBROSIS STAGE 2 OF 4- see comment Signing PathologistDirect Phone Line: [phone] signed by Dana Hernández MD on 11/20/2019 at 5:33 PMThe non-alcoholic steatohepatitis activity scoring (DANNY) is performed according to guidelines from non-alcoholic steatohepatitis, clinical research network (Aram, et al. Hepatology 2005. 41:1313-21),at the request of the clinician, for research related purposes, if applicable.The DANNY score is: Steat osis: Grade 2 + lobular inflammation, grade 2 + hepatocyte ballooning score 1 = 5/8. The fibrosis score is 2 of 4.06330, 57742 [id number] in a clinical research trial-NASHNative liver biopsy Anatomic source of tissue: Liver, right The specimen is received in formalin labeled with the patient's information accession number and "liver biopsy tissue, participant in clinical research trial-BAZAN" and are two 1.8 cm long and 1.6 cm long and 0.1 cm in diameter, koenig- brown liver core biopsies. The specimen is submitted entirely following filtration in cassette A1. HS/ewSection shows two cores of liver parenchyma with greater than 10 portal tracts and is adequate for evaluation. There [...] Iron stain is negative. No hyaline globules areseen on PAS with diastase stain. Small clusters of portal and lobular ceroid laden macrophages are present. The trichrome and reticulin stains show prominent cenrilobular perisinusoidal fibrosis. Thereis focal mild periportal fibrosis. The interpretation of this case included the use of immunohistochemistry or special stains.Control Slides Examined: In-house known positive controls were evaluated along with the test tissue. These control slides run alongside of the patients sample show appropriate staining. Internal positive and negative controls when available are evaluated Immunohistochemistrytechnical testing was performed at [facility], Pathology Laboratory where it was developed and its performance characteristics were determined. It has not been cleared or approvedby the U.S. Food and Drug Administration. The FDA has determined that such clearance or approval is not necessary. The test is used for clinical purposes. It should not be regarded as investigational or for research. This laboratory is certified under the Clinical Laboratory Improvement Amendments of 1988 (CLIA-88) as qualified to perform high complexity clinical laboratory testing.[id number] 07:36:00 Test Item Value Reference Range Interpretation Comments PTT (test code = 85711-0) 28.5 22.5- 36.0 seconds Lab Interpretation (test code = Normal 72380-9) [facility] Test Item Value Reference Range Interpretation Comments PARTIAL THROMBOPLASTIN TIME 28.5 seconds 22.5-36.0 (BEAKER) (test code = 760) Prothrombin time/[id number] 07:35:00 Test Item Value Reference Range Interpretation Comments Protime (test code = 12.9 11.9- 14.2 5902-2) seconds INR (test code = 1.0 <=5.9 6301-6) PRANEETH (test code = PRANEETH) Effective 03/04/2019: PT Reference Range ChangeNew: 11.9-14.2 Previous: 11.7-14.7 RECOMMENDED COUMADIN/WARFARIN INR THERAPY RANGESSTANDARD DOSE: 2.0-3.0 Includes: PROPHYLAXIS for venous thrombosis, systemic embolization; TREATMENT for venous thrombosis and/or pulmonary embolus.HIGH RISK: Target INR is 2.5-3.5 for patients wiht mechanical heart valves. Lab Interpretation Normal (test code = 71225-4) [facility][id number] 07:35:00 Test Item Value Reference Range Interpretation Comments PROTIME (BEAKER) (test code = 12.9 seconds 11.9-14.2 759) INR (BEAKER) (test code = 370) 1.0 <=5.9 Effective 03/04/2019: PT Reference Range ChangeNew: 11.9-14.2 Previous: 11.7- 14.7RECOMMENDED COUMADIN/WARFARIN INR THERAPY RANGESSTANDARD DOSE: 2.0-3.0 Includes: PROPHYLAXIS for venous thrombosis, systemic embolization; TREATMENT for venous thrombosis and/or pulmonary embolus.HIGH RISK: Target INR is2.5-3.5 for patients wiht mechanical heart valves.CBC with platelet count + automated [id number] 07:29:00 Test Item Value Reference Range Interpretation Comments WBC (test code = 6690-2) 10.9 3.5- 10.5 K/L H RBC (test code = 789-8) 4.40 3.93- 5.22 M/L MCHC (test code = 786-4) 32.9 32.2- 35.5 GM/DL Hematocrit (test code = 4544-3) 39.8 % 34.1-44.9 MCV (test code = 787-2) 90.5 fL 79.4-94.8 MCH (test code = 785-6) 29.8 pg 25.6-32.2 RDW (test code = 788-0) 13.6 % 11.7-14.4 Platelets (test code = 777-3) 169 150- 450 K/CU MM MPV (test code = 06596-3) 10.7 fL 9.4-12.3 nRBC (test code = 413) 0 0- 0 /100 WBC % Neutros (test code = 429) 57 % % Lymphs (test code = 430) 29 % % Monos (test code = 431) 9 % % Eos (test code = 432) 3 % % Baso (test code = 437) 1 % # Neutros (test code = 670) 6.23 1.56- 6.13 K/L H # Lymphs (test code = 414) 3.18 1.18- 3.74 K/L # Monos (test code = 415) 1.01 0.24- 0.36 K/L H # Eos (test code = 416) 0.29 0.04- 0.36 K/L # Baso (test code = 417) 0.08 0.01- 0.08 K/L Immature Granulocytes-Relative 1 % 0-1 (test code = 2801) Lab Interpretation (test code = Abnormal 68838-3) [facility] W/PLT COUNT & AUTO [id number] 07:29:00 Test Item Value Reference Range Interpretation Comments WHITE BLOOD CELL COUNT (BEAKER) 10.9 K/ L 3.5-10.5 H (test code = 775) RED BLOOD CELL COUNT (BEAKER) 4.40 M/ L 3.93-5.22 (test code = 761) HEMOGLOBIN (BEAKER) (test code = 13.1 GM/DL 11.2-15.7 410) HEMATOCRIT (BEAKER) (test code = 39.8 % 34.1-44.9 411) MEAN CORPUSCULAR VOLUME (BEAKER) 90.5 fL 79.4-94.8 (test code = 753) MEAN CORPUSCULAR HEMOGLOBIN 29.8 pg 25.6-32.2 (BEAKER) (test code = 751) MEAN CORPUSCULAR HEMOGLOBIN CONC 32.9 GM/DL 32.2-35.5 (BEAKER) (test code = 752) RED CELL DISTRIBUTION WIDTH 13.6 % 11.7-14.4 (BEAKER) (test code = 412) PLATELET COUNT (BEAKER) (test 169 K/CU MM 150-450 code = 756) MEAN PLATELET VOLUME (BEAKER) 10.7 fL 9.4-12.3 (test code = 754) NUCLEATED RED BLOOD CELLS 0 /100 WBC 0-0 (BEAKER) (test code = 413) NEUTROPHILS RELATIVE PERCENT 57 % (BEAKER) (test code = 429) LYMPHOCYTES RELATIVE PERCENT 29 % (BEAKER) (test code = 430) MONOCYTES RELATIVE PERCENT 9 % (BEAKER) (test code = 431) EOSINOPHILS RELATIVE PERCENT 3 % (BEAKER) (test code = 432) BASOPHILS RELATIVE PERCENT 1 % (BEAKER) (test code = 437) NEUTROPHILS ABSOLUTE COUNT 6.23 K/ L 1.56-6.13 H (BEAKER) (test code = 670) LYMPHOCYTES ABSOLUTE COUNT 3.18 K/ L 1.18-3.74 (BEAKER) (test code = 414) MONOCYTES ABSOLUTE COUNT (BEAKER) 1.01 K/ L 0.24-0.36 H (test code = 415) EOSINOPHILS ABSOLUTE COUNT 0.29 K/ L 0.04-0.36 (BEAKER) (test code = 416) BASOPHILS ABSOLUTE COUNT (BEAKER) 0.08 K/ L 0.01-0.08 (test code = 417) IMMATURE GRANULOCYTES-RELATIVE 1 % 0-1 PERCENT (BEAKER) (test code = 1679)
--- NOTE | 2020-07-31 15:04 | RAD REPORT ---
EXAM DESCRIPTION: CT - Head Brain Wo Cont - 07/31/2020 2:54 pm CLINICAL HISTORY: HEADACHE COMPARISON: Head Brain Wo Cont dated 03/25/2018 TECHNIQUE: Axial 5 mm thick images of the head were obtained without IV contrast. All CT scans are performed using dose optimization technique as appropriate and may include automated exposure control or mA/KV adjustment according to patient size. FINDINGS: No intracranial hemorrhage, mass, edema or shift of mid-line structures. No acute infarcti on changes seen. No abnormal extra-axial fluid collections. No cortical edema or sulcal effacement. M ild to moderate atrophy changes present. Moderate chronic ischemic change throughout the cerebral whi te matter and probably in the brainstem. Intracranial findings are similar to comparison. Mastoid air cells and middle ears are clear. Imaged paranasal sinuses are clear of acute finding. No acute bony findings. IMPRESSION: No acute intracranial finding. Atrophy and chronic ischemic changes are present similar to the 2018 study.
--- NOTE | 2020-07-31 15:12 | EDPHYS ---
Physician Documentation [facility] Name: Marilynn Hartman Age: 74 yrs Sex: Female : 1945 Arrival Date: 07/31/2020 Time: 14:04 Bed 13 Private MD: ED Physician Franki Romero HPI: 07/31 14:47 This 74 yrs old Female presents to ER via Ambulatory with complaints of rn facial weakness. 14:47 The patient presents to the emergency department with weakness of the right side of the rn face. Onset: The symptoms/episode began/occurred today. Associated signs and symptoms: Pertinent positives: This patient does not have any pertinent positives. Pertinent negatives: chills, dizziness, fever, headache, paresthesias, seizure, syncope, near-syncope, blurred vision, double vision, visual field changes, loss of vision. Severity of symptoms: At their worst the symptoms were mild in the emergency department the symptoms are unchanged. The patient has not experienced similar symptoms in the past. Reports right face feels different, noticed today, noticed food and drink falling out right mouth. No other focal neuro complaints. No injury. . Historical: - Allergies: 14:15 Bactrim; ll1 14:15 Biaxin; ll1 14:15 Xjrsvuc-Jaq-Env Reductase Inhibitors; ll1 - PMHx: 14:15 Anxiety; Cirrhosis; Non-alcoholic; Diabetes - NIDDM; High Cholesterol; Hypertension; ll1 - PSHx: 14:15 Cholecystectomy; Appendectomy; Tonsillectomy; Hysterectomy; ll1 - Immunization history:: Flu vaccine is up to date. - Social history:: Smoking status: Patient denies any tobacco usage or history of. - Family history:: not pertinent. - Hospitalizations: : No recent hospitalization is reported. ROS: 14:47 Constitutional: Negative for fever, chills, and weight loss, Eyes: Negative for injury, rn pain, redness, and discharge, Cardiovascular: Negative for chest pain, palpitations, and edema, Respiratory: Negative for shortness of breath, cough, wheezing, and pleuritic chest pain, Abdomen/GI: Negative for abdominal pain, nausea, vomiting, diarrhea, and constipation, MS/Extremity: Negative for injury and deformity, Skin: Negative for injury, rash, and discoloration, Neuro: Negative for headache, numbness, tingling, and seizure. Exam: 14:47 Constitutional: This is a well developed, well nourished patient who is awake, alert, rn and in no acute distress. Head/Face: Normocephalic, atraumatic. Eyes: Pupils equal round and reactive to light, extra-ocular motions intact. Conjunctiva and sclera are non-icteric and not injected. Cornea within normal limits. Periorbital areas with no swelling, redness, or edema. ENT: No oral swelling Cardiovascular: Regular rate and rhythm. No pulse deficits. Respiratory: Speaking full sentences, unlabored. Skin: Warm, dry with normal turgor. Normal color with no rashes, no lesions, and no evidence of cellulitis. MS/ Extremity: Pulses equal, no cyanosis. Neurovascular intact. Full, normal range of motion. Equal circumference. Neuro: Awake and alert, GCS 15, oriented to person, place, time, and situation. + mild right upper and lower facial weakness. Motor strength 5/5 in all extremities. Sensory grossly intact. Cerebellar exam normal. Normal gait. Vital Signs: 14:11 BP 163 / 71; Pulse 90; Resp 18; Temp 98.2; Pulse Ox 98% ; Weight 94.8 kg; Height 5 ft. ll1 2 in. (157.48 cm); Pain 0/10; 14:11 Body Mass Index 38.23 (94.80 kg, 157.48 cm) ll1 MDM: 14:21 Patient medically screened. rn 15:11 Data reviewed: vital signs, nurses notes, radiologic studies, CT scan, and as a result, rn I will discharge patient. Counseling: I had a detailed discussion with the patient and/or guardian regarding: the historical points, exam findings, and any diagnostic results supporting the discharge/admit diagnosis, radiology results, the need for outpatient follow up, to return to the emergency department if symptoms worsen or persist or if there are any questions or concerns that arise at home. Special discussion: I discussed with the patient/guardian in detail that at this point there is no indication for admission to the hospital. It is understood, however, that if the symptoms persist or worsen the patient needs to return immediately for re-evaluation. Based on the history and exam findings, there is no indication for further emergent testing or inpatient evaluation. I discussed with the patient/guardian the need to see the neurologist for further evaluation of the symptoms. ED course: Advised neuro f/u, as well as taping eye shut and using artifical tears.. 07/31 14:30 Order name: CT Head Brain wo Cont; Complete Time: 15:11 rn Administered Medications: No medications were administered Disposition: 07/31/20 15:12 Discharged to Home. Impression: Cordoba's palsy. - Condition is Stable. - Discharge Instructions: Cordoba Palsy, Adult. - Prescriptions for Acyclovir 400 mg Oral Tablet - take 1 tablet by ORAL route every 8 hours; 30 tablet. Prednisone 20 mg Oral Tablet - take 1 tablet by ORAL route as directed for 10 days Take 3 tablets by mouth once daily for 5 days, then take 2 tablets by mouth once daily for 3 days, then take 1 tablet by mouth once daily for 2 days, for a total of 10 days.; 23 tablet. - Medication Reconciliation Form, Thank You Letter, Antibiotic Education, Prescription Opioid Use form. - Follow up: Duglas Moss MD; When: As needed; Reason: Recheck today's complaints, Re-evaluation by your physician. - Problem is new. - Symptoms are unchanged. Signatures: Dispatcher [employer] EDMS Franki Romero MD MD rn Baxter, Heather, RN RN hb Lewis, Lynsay, RN RN ll1 Corrections: (The following items were deleted from the chart) 15:18 15:12 07/31/2020 15:12 Discharged to Home. Impression: Cordoba's palsy. Condition is hb Stable. Discharge Instructions: Cordoba Palsy, Adult. Prescriptions for Acyclovir 400 mg Oral Tablet - take 1 tablet by ORAL route every 8 hours; 30 tablet, Prednisone 20 mg Oral Tablet - take 1 tablet by ORAL route as directed for 10 days Take 3 tablets by mouth once daily for 5 days, then take 2 tablets by mouth once daily for 3 days, then take 1 tablet by mouth once daily for 2 days, for a total of 10 days.; 23 tablet. and Forms are Medication Reconciliation Form, Thank You Letter, Antibiotic Education, Prescription Opioid Use. Follow up: Duglas Moss; When: As needed; Reason: Recheck today's complaints, Re-evaluation by your physician. Problem is new. Symptoms are unchanged. rn
--- NOTE | 2020-07-31 15:12 | ER ---
Nurse's Notes [facility] Name: Marilynn Hartman Age: 74 yrs Sex: Female : 1945 Arrival Date: 07/31/2020 Time: 14:04 Bed 13 Private MD: Diagnosis: Cordoba's palsy Presentation: 07/31 14:11 Chief complaint: Patient states: Congestion all the time. States she noticed swelling ll1 to the right side of face today. Slight ear pain. No sore throat. Fever at night for 1 month (101 at home.). Coronavirus screen: Client denies travel out of the [place] in the last 14 days. congestion, fatigue, fever, Client presents with at least one sign or symptom that may indicate coronavirus-19. Standard/surgical mask placed on the client. Ebola Screen: Patient denies travel to an Ebola-affected area in the 21 days before illness onset. Initial Sepsis Screen: Does the patient meet any 2 criteria? No. Patient's initial sepsis screen is negative. Does the patient have a suspected source of infection? Yes: Other: facial swelling. Risk Assessment: Do you want to hurt yourself or someone else? Patient reports no desire to harm self or others. Onset of symptoms was July 31, 2020. 14:11 Method Of Arrival: Ambulatory ll1 14:11 Acuity: KAROL 3 ll1 Historical: - Allergies: 14:15 Bactrim; ll1 14:15 Biaxin; ll1 14:15 Xwrevwd-Yak-Eep Reductase Inhibitors; ll1 - PMHx: 14:15 Anxiety; Cirrhosis; Non-alcoholic; Diabetes - NIDDM; High Cholesterol; Hypertension; ll1 - PSHx: 14:15 Cholecystectomy; Appendectomy; Tonsillectomy; Hysterectomy; ll1 - Immunization history:: Flu vaccine is up to date. - Social history:: Smoking status: Patient denies any tobacco usage or history of. - Family history:: not pertinent. - Hospitalizations: : No recent hospitalization is reported. Screenin:33 Abuse screen: Denies threats or abuse. Denies injuries from another. Nutritional hb screening: No deficits noted. Tuberculosis screening: No symptoms or risk factors identified. Fall Risk None identified. Assessment: 14:30 General: Appears in no apparent distress. Behavior is calm, cooperative. Pain: Denies hb pain. Neuro: Level of Consciousness is awake, alert, obeys commands, Oriented to person, place, time, situation. Cardiovascular: Capillary refill < 3 seconds Patient's skin is warm and dry. Respiratory: Respiratory effort is even, unlabored, Respiratory pattern is regular, symmetrical. GI: No signs and/or symptoms were reported involving the gastrointestinal system. : No signs and/or symptoms were reported regarding the genitourinary system. EENT: No signs and/or symptoms were reported regarding the EENT system. Derm: Skin is pink, warm \T\ dry. Musculoskeletal: right sided facial weakness. Vital Signs: 14:11 BP 163 / 71; Pulse 90; Resp 18; Temp 98.2; Pulse Ox 98% ; Weight 94.8 kg; Height 5 ft. ll1 2 in. (157.48 cm); Pain 0/10; 14:11 Body Mass Index 38.23 (94.80 kg, 157.48 cm) ll1 ED Course: 14:04 Patient arrived in ED. mr 14:14 Triage completed. ll1 14:15 Arm band placed on Patient placed in an exam room, on a stretcher. ll1 14:21 Franki Romero MD is Attending Physician. rn 14:33 Italia Urbina, PENELOPE is Primary Nurse. hb 14:33 Patient has correct armband on for positive identification. Bed in low position. Call hb light in reach. 14:54 CT Head Brain wo Cont In Process Unspecified. EDNV 15:12 Duglas Moss MD is Referral Physician. rn 15:12 No provider procedures requiring assistance completed. Patient did not have IV access hb during this emergency room visit. Administered Medications: No medications were administered Outcome: 15:12 Discharge ordered by . rn 15:12 Discharged to home ambulatory. hb 15:12 Condition: stable 15:12 Discharge instructions given to patient, Instructed on discharge instructions, follow up and referral plans. medication usage, Demonstrated understanding of instructions, follow-up care, medications, Prescriptions given X 2. 15:18 Patient left the ED. hb Signatures: Dispatcher [employer] [facility] RubenDemetria Franki Romero MD MD rn Baxter, Heather, Georgia Voss RN, RN RN ll1
[2020-07-31 15:22] VITALS: BP 163/71; TEMP 98.2; O2SAT 98
== END 2020-07-31 15:18 | disposition home or self-care (01) ==
LOC: ER 13:58
DX: G51.0 Bell's palsy (principal); I10 Essential (primary) hypertension; Z88.1 Allergy status to other antibiotic agents; Z88.6 Allergy status to analgesic agent; Z88.8 Allergy status to other drugs, medicaments and biological substances
CPT/HCPCS: 70450; 99283

== ENCOUNTER 2022-05-09 06:12 | Day surgery (SDC) | payer MEDICARE, OTHER ==
[2022-05-08 15:21] LABS: Hematocrit 41.6 % (36.0-45.0); MCV 89.2 fL (80-100); RBC Red Blood Cell Count 4.66 M/uL (3.86-4.86)
[2022-05-08 15:22] LABS: Absolute Lymphocytes (CBC) 3.3 K/uL (0.7-4.9); MPV 7.6 fL (7.6-11.3)
[2022-05-08 15:42] LABS: Potassium 3.7 mmol/L (3.5-5.1)
--- NOTE | 2022-05-08 15:44 | RAD REPORT ---
EXAM DESCRIPTION: RAD - Chest Pa And Lat (2 Views) - 05/08/2022 3:39 pm CLINICAL HISTORY: Pre op pending cyst removal face Chest pain. COMPARISON: Chest Single View dated 10/14/2019; Chest Pa And Lat (2 Views) dated 02/17/2019; Chest Pa A nd Lat (2 Views) dated 10/06/2017; Chest Single View dated 02/15/2017 FINDINGS: The lungs are clear. The heart is normal in size. No displaced fractures. IMPRESSION: No acute or concerning finding suspected.
[2022-05-08 15:50] LABS: SARS-CoV-2 Antigen Rapid Res Negative (Negative)
[2022-05-09] MEDS ORDERED: CEFAZOLIN SODIUM 1 GM/VIAL ONE (06:49)
[2022-05-09] MEDS ORDERED: NA CHLORIDE 0.9% 1,000 ML ONE (06:50)
[2022-05-09] MEDS ORDERED: propofoL 200 MG/20 ML VIAL IV ONE (07:08)
[2022-05-09] MEDS ORDERED: FENTANYL CITR 100 MCG/2 ML ONE (07:08)
[2022-05-09] MEDS ORDERED: MIDAZOLAM HCL 2 MG/2 ML INJ ONE (07:09)
[2022-05-09] MEDS ORDERED: LIDOCAINE 1% MPF 2 ML AMPULE ONE (07:10)
[2022-05-09] MEDS ORDERED: ONDANSETRON 4 MG/2 ML VIAL ONE (07:10)
--- NOTE | 2022-05-09 07:21 | EKG ---
Test Date: 2022-05-08 Test Time: 14:53:09 Justowriter Operator: DC MEASUREMENT RESULTS: Intervals: Rate: 82 AL: 170 QRSD: 80 QT: 400 QTc: 467 [place]: P: 21 AL: 170 QRS: 47 T: 76 INTERPRETIVE STATEMENTS: Normal sinus rhythm ST abnormality, possible digitalis effect Abnormal ECG Compared to ECG 03/25/2018 10:17:02 ST (T wave) deviation now present Atrial premature complex(es) no longer present Electronically Signed On 05-09-22 07:19:24 CDT by Arpan Stephenson
[2022-05-09] MEDS ORDERED: Mastisol Adhesive Liq ONE (08:10)
--- NOTE | 2022-05-09 08:27 | P.BOP ---
Preoperative diagnosis: tender mass SubQ Postoperative diagnosis: same Primary procedure: Excisional biopsy of tender facial mass SubQ 3 x 2.5cm Estimated blood loss: <10cc Specimen: mass Findings: mass Anesthesia: General Complications: None Transferred to: Recovery Room Condition: Good
[2022-05-09 09:35] VITALS: BP 98/59; TEMP 96.8; O2SAT 94
--- NOTE | 2022-05-09 13:32 | OP ---
Date of Procedure: 05/09/2022 Surgeon: Keith Reyes MD Preoperative Diagnosis: Tender mass subcutaneous mass on the face. Postoperative Diagnosis: Tender mass subcutaneous mass on the face. Procedure: Excisional biopsy of tender facial subcutaneous mass, 3 x 2.5 cm. Estimated Blood Loss: Less than 10 mL. Specimen: Mass. Findings: Mass. Anesthesia: General plus local. Complications: None. Indication: This is the case of a 76-year-old patient, who has a facial mass, which is increasing in size and giving some tenderness. The patient wants that excised. The patient states in the last fe w weeks it is increasing in size and concerning, so she wants that excised. The benefits, alternativ es, and risks of excisional biopsy of the facial subcutaneous mass fully explained, which include, bu t not limited to infection, bleeding, damage to adjacent structures, anesthesia complication, recurre nce, [place], and even . She also understands this may not relieve any symptoms. She might need mor e than one surgical intervention and signed a consent. She also understands that she will have a sca r over the area and she continued with the plan of removing the mass. The area of concern was marked by me and the patient in the holding room. Procedure In Detail: The patient was brought to the operating room, placed in supine position. Anes thesia was done without complication. Facial area was prepped and draped in the usual sterile fashio n. Local anesthesia was applied followed by sharp incision of the skin in a wedge fashion. Incision was carried down to deep subcutaneous tissue. We noticed this to be all the way down near the fasci a of the muscle, does not penetrate the muscle. The mass was completely excised. The area was irrig ated. Then, we proceeded to close this in layers with 3-0 chromic in the subcutaneous tissue and the n 3-0 chromic in a subcuticular fashion with Steri-Strips on top. This was after irrigation, hemosta sis, and local anesthetic applied. The patient tolerated the procedure well. The patient was sent t o recovery in stable condition. Sponge count, instrument counts correct. HM/MODL Voice ID: [id number] Report ID: [id number]
--- NOTE | 2022-05-09 13:39 | DS ---
Date of Discharge: 05/09/2022 Diagnosis: Tender facial subcutaneous mass. Procedure: Excisional biopsy of tender facial subcutaneous mass. Disposition: Home. Activity: As tolerated. No heavy lifting. Plan: Follow up in my office in 1 week. Call for appointment at [phone]. Keep area dry for 48 nato rs and then may shower. Keep Steri-Strips intact. SHANA/HELEN Voice ID: [id number] Report ID: [id number]
== END 2022-05-09 09:37 | disposition home or self-care (01) ==
LOC: OR 06:12
PROVIDERS: ATTEND Surgery
PROC: 0HB1XZZ Excision of Face Skin, External Approach (ICD-10-PCS; principal; 2022-05-09 07:30)
DX: L72.0 Epidermal cyst (principal); Z20.822 Contact with and (suspected) exposure to COVID-19
CPT/HCPCS: 93005; 85025; 80048; 36415; 82947 ×2; 88305; 71046; 87811; 11443; J2704; J3010; J7030; J2405; J0690; 88304; J2250

== ENCOUNTER 2024-08-27 19:49 | Inpatient (IN) | payer OTHER ==
[2024-08-27] MEDS ORDERED: NA CHLORIDE 0.9% 1,000 ML ONE (20:10)
[2024-08-27 20:32] LABS: Absolute Eosinophils 0.1 K/uL (0-0.5); Absolute Neutrophil 4.9 K/uL (1.8-8.0); Basophils % 0.5 % (0-1.3); MCHC 32.5 g/dL (32.0-36.0)
[2024-08-27 20:50] LABS: ALT/SGPT 48 U/L (13-56); Albumin 3.2 g/dL (3.4-5.0); Albumin/Globulin Ratio 0.6 (1.1-1.8); Alkaline Phosphatase 98 U/L (45-117); Anion Gap 11.3 mEq/L (5.0-15.0); BUN Blood Urea Nitrogen 38 mg/dL (7-18); Bicarbonate 17 mEq/L (21-32); Bilirubin Total 0.7 mg/dL (0.2-1.0); Globulin 5.1 g/dL (2.3-3.5); Glomerular Filtration Rate 47 ml/min (=/>90); Glucose Level 126 mg/dL (74-106); NT PRO-BNP 551 pg/mL (<450); Protein, Total 8.3 g/dL (6.4-8.2); Sodium Level 136 mEq/L (136-145); Troponin High Sensitivity 6.4 pg/mL (<58.9)
[2024-08-27 20:53] LABS: PT Prothrombin Time 11.5 SECONDS (9.4-12.5); PTT, Activated Partial Thromb 21.9 SECONDS (24.3-36.9); Protime INR 1.03
[2024-08-27 20:57] LABS: Absolute Lymphocytes (CBC) 2.1 K/uL (0.7-4.9); Absolute Monocytes 0.8 K/uL (0.1-1.3); Eosinophils % 0.7 % (0-4.4); Hemoglobin 14.3 g/dL (12.0-15.0); Lymphocytes % 26.2 % (15.3-44.8); MCH 30.3 pg (27.0-35.0); MCV 93.5 fL (80-100); MPV 8.2 fL (7.6-11.3); Monocytes % 10.5 % (3.3-12.3); Neutrophils % 62.1 % (41.7-73.7); Nucleated Red Blood Cells % 0.1 % (0-0); Platelets 173 thou/uL (152-406); RBC Red Blood Cell Count 4.71 M/uL (3.86-4.86); Red Cell Distribution Width 15.8 % (12.1-15.2)
--- NOTE | 2024-08-27 21:01 | RAD REPORT ---
EXAM: CT brain without contrast HISTORY: fall, head contusion and pelvic pain COMPARISON: None TECHNIQUE: Multiple contiguous axial images were obtained and a CT of the brain without contrast. Sag ittal and coronal reformats were performed. One or more of the following dose reduction techniques were used: Automated exposure control, adjust ment of the mA and/or kV according to patient size, and/or iterative reconstruction. FINDINGS: No evidence of hydrocephalus, intracranial hemorrhage, or extra-axial fluid collection. Moderate brain atrophy with moderate periventricular and deep white matter chronic microvascular isc hemic changes present. No evidence of midline shift or areas of brain edema. The calvarium is intact. The visualized paranasal sinuses and mastoid air cells are essentially clear . Mild vertebral atherosclerosis. Small left frontal scalp hematoma. IMPRESSION: No evidence of acute intracranial abnormality. EXAM: CT of the cervical spine without contrast HISTORY: Neck pain, injury fall, head contusion and pelvic pain TECHNIQUE: Multiple contiguous axial images were obtained in a CT of the cervical spine without contr ast. Sagittal and coronal reformats were performed. FINDINGS: The vertebral bodies demonstrate normal height and alignment. No evidence of acute fracture or subluxation.. Mild mid cervical degenerative spondylosis. No prevertebral soft tissue swelling is seen. The posterior facets are well aligned. Normal alignment of the skull base with the cervical spine is seen. The lung apices are unremarkable. IMPRESSION: No evidence of acute osseous abnormality of the cervical spine.
[2024-08-27 21:03] LABS: AST/SGOT 69 U/L (15-37); Bilirubin Direct < 0.2 mg/dL (0-0.2); Bilirubin Indirect, Calculated 0.5 mg/dL (0.2-0.8); Magnesium 2.1 mg/dL (1.6-2.4); Potassium 4.3 mEq/L (3.5-5.1)
--- NOTE | 2024-08-27 21:03 | RAD REPORT ---
EXAM: CT CHEST, ABDOMEN AND PELVIS WITHOUT CONTRAST CLINICAL INDICATION: Fall, pain TECHNIQUE: CT chest, abdomen and pelvis was performed without contrast, as per department protocol. A xial, sagittal and coronal reconstructions were obtained. One or more of the following dose reduction techniques were used: Automated exposure control, adjustment of the mA and/or kV according to patient size, and/or iterative reconstruction. Unless otherwise specified, incidental findings do not require dedicated imaging follow-up. Examination is limited by the lack of intravenous contrast material. COMPARISON: No prior exam. FINDINGS: LUNGS: No evidence of airspace or interstitial process. No nodules. PLEURA: No pleural effusion. No pneumothorax. MEDIASTINUM AND LYMPH NODES: No mediastinal mass or fluid collection. Normal size mediastinal, hilar, and axillary lymph nodes. OSSEOUS STRUCTURES AND CHEST WALL: Intact. LIVER: Normal in size and contour. No focal lesion or biliary dilatation. Cholecystectomy clips. PANCREAS: No mass, ductal dilation, or giancarlo-pancreatic fluid. SPLEEN: Normal size. No focal lesion. ADRENALS: Normal; no mass. KIDNEYS: Normal size and contour. No hydronephrosis. URINARY BLADDER: Normal contour. GASTROINTESTINAL TRACT: No bowel obstruction, free air, significant free fluid or abscess. APPENDIX: Normal appendix. LYMPH NODES: No lymphadenopathy. MUSCULOSKELETAL: Mild lower lumbar degenerative changes. OTHER: IMPRESSION: No acute or significant abnormalities seen in the chest, abdomen or pelvis.
--- NOTE | 2024-08-27 21:05 | RAD REPORT ---
EXAMINATION: ONE VIEW CHEST XR CLINICAL INDICATION: fall TECHNIQUE: Frontal chest projection is submitted. Examination is limited by patient positioning and t echnique. COMPARISON: 08/22/2024 FINDINGS: The lungs are well inflated and clear. The heart is normal in size. No displaced fractures identified . IMPRESSION: No acute intrathoracic abnormalities.
[2024-08-27] MEDS ORDERED: NYSTATIN 100MU/GM CREAM 15GM TOP ONE (23:43)
--- NOTE | 2024-08-27 23:53 | ER ---
Nurse's Notes [facility] Name: Marilynn Hartman Age: 78 yrs Sex: Female : 1945 Arrival Date: 08/27/2024 Time: 19:49 Bed 19 Private MD: Diagnosis: Repeated falls;Weakness;Volume depletion, unspecified Presentation: 08/27 19:53 Chief complaint: EMS states: toned out for slip and fall in the shower. Hematoma to me1 right forehead. Denies pain. Bruise to left forehead from previous fall in the shower. Coronavirus screen: Vaccine status: Patient reports being unvaccinated. Ebola Screen: No symptoms or risks identified at this time. Initial Sepsis Screen: Does the patient meet any 2 criteria? Systolic BP < 90 mmHg. Does the patient have a suspected source of infection? No. Patient's initial sepsis screen is negative. Risk Assessment: Do you want to hurt yourself or someone else? Patient reports no desire to harm self or others. Onset of symptoms was August 27, 2024 at 19:00. 19:53 Method Of Arrival: EMS: [place] [id number] 19:53 Acuity: KAROL 3 me1 Triage Assessment: 19:57 General: Appears in no apparent distress. well groomed, well developed, well nourished, me1 Behavior is calm, cooperative, appropriate for age. Pain: Denies pain. EENT: No signs and/or symptoms were reported regarding the EENT system. Neuro: Level of Consciousness is awake, alert, obeys commands, confused, Oriented to person, situation. Cardiovascular: Patient's skin is warm and dry. Respiratory: Airway is patent Trachea midline Respiratory effort is even, unlabored, Respiratory pattern is regular, symmetrical. GI: No signs and/or symptoms were reported involving the gastrointestinal system. : No signs and/or symptoms were reported regarding the genitourinary system. Derm: Bruising that is dark purple, green, on forehead. Musculoskeletal: No signs and/or symptoms reported regarding the musculoskeletal system. Injury Description: slip and fall in shower. Hematoma to right forehead. Bruise on left forehead from previous fall. Historical: - Allergies: 19:57 Bactrim; me1 19:57 Biaxin; me1 19:57 Folic Acid; me1 19:57 Iodine; me1 19:57 Cgmycsy-Fpq-Gbm Reductase Inhibitors; me1 - PMHx: 19:57 Alzheimer's disease; Anxiety; Cirrhosis; Non-alcoholic; Dementia; Diabetes - NIDDM; me1 High Cholesterol; Hypertension; - Immunization history:: Adult Immunizations unknown. - Infectious Disease History:: Denies. - Social history:: Smoking status: Patient denies any tobacco usage or history of. Screenin:59 [facility] ED Fall Risk Assessment (Adult) History of falling in the last 3 months, [facility] including since admission Yes- fall prone (multiple falls) (3 pts) Confusion or Disorientation Yes (5 pts) Intoxicated or Sedated No (0 pts) Impaired Gait No (0 pts) Mobility Assist Device Used Yes (1 pt) Altered Elimination No (0 pt) Score/Fall Risk Level 3 or more points = High Risk Maintained a safe environment, Provided non-skid footwear, Hourly rounding (assess needs \T\ fall precautionary measures) done. Abuse screen: Denies threats or abuse. Nutritional screening: No deficits noted. Tuberculosis screening: No symptoms or risk factors identified. Assessment: 19:59 General: See triage assessment. . me1 Vital Signs: 19:53 BP 85 / 67; Pulse 99; Resp 18; Temp 98.6; Pulse Ox 95% ; Weight 84 kg; Height 5 ft. 2 me1 in. ; Pain 0/10; 20:12 BP 109 / 71; Pulse 63; Resp 18; Pulse Ox 99% ; me1 21:00 BP 93 / 60; Pulse 62; Resp 18; Pulse Ox 100% ; me1 22:00 BP 131 / 51; Pulse 64; Resp 18; Pulse Ox 100% ; me1 23:00 BP 148 / 69; Pulse 66; Resp 16; Pulse Ox 98% ; me1 23:45 BP 134 / 89; Pulse 65; Resp 17; Pulse Ox 99% ; me1 08/28 07:36 BP 146 / 86; Pulse 66; Resp 16; Pulse Ox 99% ; hb 08/27 19:53 Body Mass Index 33.87 (84.00 kg, 157.48 cm) la1 08/27 19:53 Pain Scale: Adult [facility] ED Course: 08/27 19:52 Patient arrived in ED. la1 19:57 Triage completed. la1 19:57 Arm band placed on Patient placed in an exam room. me1 19:59 Patient has correct armband on for positive identification. Bed in low position. Call me1 light in reach. Side rails up X2. Provided Education on: POC. Verbalized understanding. . Client placed on continuous cardiac and pulse oximetry monitoring. NIBP monitoring applied. Pulse ox on. NIBP on. 19:59 No provider procedures requiring assistance completed. me1 20:01 Juanito Merida PA is PHCP. cp 20:01 Juanito Cheung MD is Attending Physician. cp 20:08 Dayana Vargas, RN is Primary Nurse. me1 20:41 Missed attempt(s): 22 gauge in left antecubital area. me1 20:56 Head C Spine Mpr Wo Con In Process Unspecified. EDMS 20:56 Chest Abd Pelvis Wo Con In Process Unspecified. EDMS 21:03 XRAY Chest (1 view) In Process Unspecified. EDMS 21:22 Inserted saline lock: 24 gauge in left upper arm, using aseptic technique. me1 22:24 EKG done, by ED staff, reviewed by Juanito MEZA. me1 23:51 Kvng Colón MD is Hospitalizing Provider. cp Administered Medications: 21:22 Drug: NS 0.9% IV 500 ml 500 ml IV at 1 bolus once; to be given as a bolus over 30 me1 minutes Volume: 500 ml; Route: IV; Rate: 1 bolus; Site: left upper arm; 21:23 Drug: NS 0.9% IV 500 ml IV at 100 ml/hr once Route: IV; Rate: 100 ml/hr; Site: left me1 upper arm; 23:40 CANCELLED (Physician Discretion): nystatin-triamcinoloneointment 1 application Topical cp once 23:43 Drug: nystatin Topical Cream 1 application Topical once {Note: abdominal folds and me1 periarea.} Route: Topical; Site: affected area; Medication: 19:59 VIS not applicable for this client. me1 Outcome: 23:52 Decision to Hospitalize by Provider. cp 08/28 08:40 Patient left the ED. Signatures: Dispatcher [employer] EDNY Juanito Merida PA PA cp Baxter, Heather, RN RN Dayana Vargas, PENELOPE RN me1
--- NOTE | 2024-08-27 23:53 | EDPHYS ---
Physician Documentation [facility] Name: Marilynn Hartman Age: 78 yrs Sex: Female : 1945 Arrival Date: 08/27/2024 Time: 19:49 Bed 19 Private MD: ED Physician Jaunito Cheung HPI: 08/27 20:15 This 78 yrs old Female presents to ER via EMS with complaints of Fall Injury. cp 20:15 Details of fall: The patient fell from an upright position, while walking. cp 20:15 Onset: The symptoms/episode began/occurred today. Associated injuries: The patient cp sustained injury to the head, contusion, pelvic pain. 20:15 Patient presents to ED via EMS after reported fall in home. Patient lives alone and was cp reportedly found by son on ground after trip and fall. Patient reportedly also fell couple days ago hitting head. Historical: - Allergies: 19:57 Bactrim; me1 19:57 Biaxin; me1 19:57 Folic Acid; me1 19:57 Iodine; me1 19:57 Mswskuq-Cln-Pje Reductase Inhibitors; me1 - PMHx: 19:57 Alzheimer's disease; Anxiety; Cirrhosis; Non-alcoholic; Dementia; Diabetes - NIDDM; me1 High Cholesterol; Hypertension; - Immunization history:: Adult Immunizations unknown. - Infectious Disease History:: Denies. - Social history:: Smoking status: Patient denies any tobacco usage or history of. ROS: 20:20 Constitutional: Negative for body aches, chills, fever, poor PO intake, cp 20:20 Cardiovascular: Negative for chest pain, cp 20:20 Respiratory: Negative for cough, shortness of breath, wheezing, 20:20 Abdomen/GI: Negative for abdominal pain, vomiting, diarrhea, constipation, 20:20 Back: Positive for pain with movement, 20:20 MS/extremity: Positive for pelvic pain, 20:20 Neuro: Negative for altered mental status, 20:20 All other systems are negative, Exam: 20:25 Constitutional: The patient appears in no acute distress, alert, awake, cp non-diaphoretic, non-toxic, well developed, well nourished, 20:25 Head/face: Noted is ecchymosis, that is mild, of the forehead, swelling, that is mild, cp of the forehead, 20:25 Eyes: Pupils: equal, round, and reactive to light and accomodation, Extraocular movements: intact throughout, Conjunctiva: normal, no exudate, no injection, Sclera: no appreciated abnormality, Lids and lashes: appear normal, bilaterally, 20:25 ENT: External ear(s): are unremarkable, Ear canal(s): are normal, clear, TM's: dullness, bilaterally, Nose: is normal, Mouth: Lips: moist, Oral mucosa: moist, Posterior pharynx: Airway: no evidence of obstruction, patent, 20:25 Neck: C-spine: vertebral tenderness, is not appreciated, crepitus, is not appreciated, 20:25 Chest/axilla: Inspection: normal, Palpation: crepitus, is not appreciated, tenderness, is not appreciated, 20:25 Cardiovascular: Rate: normal, Rhythm: regular, JVD: is not appreciated, 20:25 Respiratory: the patient does not display signs of respiratory distress, Respirations: normal, no use of accessory muscles, no retractions, labored breathing, is not present, Breath sounds: are clear throughout, no decreased breath sounds, no stridor, no wheezing, 20:25 Abdomen/GI: Inspection: abdomen appears normal, Palpation: abdomen is soft and non-tender, in all quadrants, 20:25 Back: Straight leg raises: right lower extremity illicits pain, 20:25 Musculoskeletal/extremity: Exam is negative for decreased range of motion, deformity, injury, 20:25 Neuro: Orientation: no acute changes, per EMS, Mentation: no acute changes, per EMS, 20:25 Skin: rash a moderate rash is noted, rash can be described as erythematous, well cp circumscribed, odorous, consistent with candidiasis, on the skin folds of lower abdomen and groin, 22:25 ECG was reviewed by the Attending Physician. cp Vital Signs: 19:53 BP 85 / 67; Pulse 99; Resp 18; Temp 98.6; Pulse Ox 95% ; Weight 84 kg; Height 5 ft. 2 me1 in. ; Pain 0/10; 20:12 BP 109 / 71; Pulse 63; Resp 18; Pulse Ox 99% ; me1 21:00 BP 93 / 60; Pulse 62; Resp 18; Pulse Ox 100% ; me1 22:00 BP 131 / 51; Pulse 64; Resp 18; Pulse Ox 100% ; ak1 23:00 BP 148 / 69; Pulse 66; Resp 16; Pulse Ox 98% ; me1 23:45 BP 134 / 89; Pulse 65; Resp 17; Pulse Ox 99% ; ak1 08/28 07:36 BP 146 / 86; Pulse 66; Resp 16; Pulse Ox 99% ; hb 08/27 19:53 Body Mass Index 33.87 (84.00 kg, 157.48 cm) ak1 08/27 19:53 Pain Scale: [facility] MDM: 08/27 20:01 Medical Screening Exam initiated cp 23:55 Data reviewed: vital signs, nurses notes, lab test result(s), EKG, radiologic studies, cp CT scan, plain films, and as a result, I will admit patient. 23:55 Management of patient was discussed with the following: Hospitalist: DR Colón will cp admit after discussion. Independent interpretation of the following test(s) in the Emergency Department EKG: See my EKG interpretation above. Care significantly affected by the following chronic conditions: Diabetes, Hypertension. Counseling: I had a detailed discussion with the patient and/or guardian regarding the historical points, exam findings, and any diagnostic results supporting the discharge/admit diagnosis, lab results, radiology results, the need for further work-up and treatment in the hospital. 08/27 20:08 Order name: Basic Metabolic Panel; Complete Time: 21:06 08/27 21:06 Interpretation: Normal except: CL 112; CO2 17; GLUC 126; BUN 38; CRE 1.18; GFR 47. 08/27 20:08 Order name: CBC with Diff; Complete Time: 21:06 08/27 23:53 Interpretation: Normal except: RDW 15.8. 08/27 20:08 Order name: LFT's; Complete Time: 21:06 08/27 21:07 Interpretation: Normal except: AST 69; TP 8.3; ALB 3.2; GLOB 5.1; A/G 0.6. 08/27 20:08 Order name: Magnesium; Complete Time: 21:06 cp 08/27 20:08 Order name: NT PRO-BNP; Complete Time: 21:06 cp 08/27 20:08 Order name: PT-INR; Complete Time: 21:06 08/27 20:08 Order name: Troponin HS; Complete Time: 21:06 cp 08/27 20:08 Order name: Ptt, Activated; Complete Time: 21:06 cp 08/28 01:26 Order name: Urinalysis w/ reflexes EDMA 08/28 01:26 Order name: CBC with Automated Diff EDMS 08/28 01:26 Order name: CBC with Automated Diff EDMS 08/28 01:26 Order name: Comprehensive Metabolic Panel EDMA 08/28 01:26 Order name: Comprehensive Metabolic Panel EDMA 08/28 07:53 Order name: Glucose, Ancillary Testing EDMS 08/27 20:08 Order name: XRAY Chest (1 view); Complete Time: 21:06 cp 08/27 20:36 Order name: Head C Spine Mpr Wo Con; Complete Time: 21:06 EDMS 08/27 20:38 Order name: Chest Abd Pelvis Wo Con; Complete Time: 21:06 EDMS 08/28 01:26 Order name: Physical Therapy Consult EDMA 08/27 20:08 Order name: Cardiac monitoring; Complete Time: 22:24 cp 08/27 20:08 Order name: EKG - Nurse/Tech; Complete Time: 22:24 cp 08/27 20:08 Order name: IV Saline Lock; Complete Time: 21:23 cp 08/27 20:08 Order name: Labs collected and sent; Complete Time: 21:23 cp 08/27 20:08 Order name: O2 Per Protocol; Complete Time: 20:21 cp 08/27 20:08 Order name: O2 Sat Monitoring; Complete Time: 20:21 cp EC:25 Rate is 64 beats/min. Rhythm is regular. UT interval is normal. QRS interval is normal. cp QT interval is normal. T waves are Inverted in lead aVR. Interpreted by me. Reviewed by me. Administered Medications: 21:22 Drug: NS 0.9% IV 500 ml 500 ml IV at 1 bolus once; to be given as a bolus over 30 me1 minutes Volume: 500 ml; Route: IV; Rate: 1 bolus; Site: left upper arm; 21:23 Drug: NS 0.9% IV 500 ml IV at 100 ml/hr once Route: IV; Rate: 100 ml/hr; Site: left me1 upper arm; 23:40 CANCELLED (Physician Discretion): nystatin-triamcinoloneointment 1 application Topical cp once 23:43 Drug: nystatin Topical Cream 1 application Topical once {Note: abdominal folds and me1 periarea.} Route: Topical; Site: affected area; Disposition: 08/29 00:56 Chart complete. cp Disposition Summary: 08/27/24 23:52 Hospitalization Ordered Notes: Hospitalization Status: Inpatient Admission cp Provider: Kvng Colón cp Condition: Stable cp Problem: new cp Symptoms: have improved cp Bed/Room Type: Standard cp Location: Telemetry/MedSurg (Inpatient)(08/28/24 07:18) eb Room Assignment: 403(08/28/24 07:18) eb Diagnosis - Repeated falls cp - Weakness cp - Volume depletion, unspecified cp Forms: - Medication Reconciliation Form cp - SBAR form cp - Leadership Thank You Letter cp Signatures: Dispatcher [employer] EDMS Juanito Merida PA PA cp Garcia, Cindy, RN RN Rose Marie Vincent Michelle, RN RN me1 Corrections: (The following items were deleted from the chart) 08/27 20:09 20:09 BASIC METABOLIC PANEL+C.LAB.BRZ ordered. EDMS EDMS 20:09 20:09 CBC+H.LAB.BRZ ordered. EDMS EDMS 20:09 20:09 HEPATIC FUNCTION+C.LAB.BRZ ordered. EDMS EDMS 20:09 20:09 MAGNESIUM+C.LAB.BRZ ordered. EDMS EDMS 20:09 20:09 PROBNP+C.LAB.BRZ ordered. EDMS EDMS 20:09 20:09 PROTIME (+INR)+COAG.LAB.BRZ ordered. EDMS EDMS 20:09 20:09 Troponin High Sensitivity+C.LAB.BRZ ordered. EDMS EDMS 20:09 20:09 PTT, ACTIVATED+COAG.LAB.BRZ ordered. EDMS EDMS 20:09 20:09 Chest Single View+RAD.RAD.BRZ ordered. EDMS EDMS 20:36 20:09 Head C Spine Cap Wo Con+CT.RAD.BRZ ordered. EDMS EDMS 23:40 23:40 Nystatin-Triamcinolone Topical Ointment 1 application Topical once ordered. cp cp 08/28 00:26 08/27 23:52 Telemetry/MedSurg (Inpatient) cp cg 08/28 00:26 11/21 23:52 cp cg 08/28 07:18 00:26 [facility] ER HOLD cg eb :18 00:26 ERHOLD- cg eb
[2024-08-28] MEDS ORDERED: ONDANSETRON 4 MG/2 ML VIAL IV PRN (01:20)
--- NOTE | 2024-08-28 01:20 | P.HP ---
Certification for Inpatient Patient admitted to: Observation With expected LOS: <2 Midnights Practitioner: I am a practitioner with admitting privileges, knowledge of patient current condition, hospital course, and medical plan of care. Services: Services provided to patient in accordance with Admission requirements found in Title 42 Section 412.3 of the Code of Federal Regulations Patient History Date of Service: 08/28/24 Reason for admission: Falls History of Present Illness: 78-year-old female with past medical history of Alzheimer's disease; Anxiety; Cirrhosis; Non-alcoholic; Dementia; Diabetes ,High Cholesterol; Hypertension brought to ER with multiple falls and generalized weakness. Patient lives along and is a poor historian hence most of the history is obtained from the chart review and also talking to the ER physician. No fever or chills. No nausea vomiting or diarrhea. Denies any pain. Patient had a workup in the ER and had a CT of the head cervical spine abdomen pelvis which were negative for any acute changes. Allergies clarithromycin [From Biaxin] Allergy (Verified 05/08/22 14:35) Unknown Sulfa (Sulfonamide Antibiotics) Allergy (Verified 05/08/22 14:35) Hives Bactrim DS Allergy (Intermediate, Uncoded 05/08/22 14:35) Hives Nkgpemq-Vis-Qry R Allergy (Mild, Uncoded 05/08/22 14:35) Nausea/Vomiting Urlunzs-Kpz-Bce Reduct Allergy (Uncoded 05/08/22 14:35) Nausea/Vomiting Home medications list reviewed: Yes Home Medications: Dapagliflozin Propanediol [Farxiga] 10 mg PO DAILY 05/08/22 Ezetimibe [Zetia] 10 mg PO DAILY 05/08/22 Insulin Degludec [Tresiba] 16 unit SQ BEDTIME 05/08/22 Mupirocin Calcium [Bactroban] 1 appl TP BID 05/08/22 - Past Medical/Surgical History Diabetic: Yes Past Medical History: Reviewed- Non-Contributory -: NIDDM -: HTN -: HIGH CHOLESTEROL -: ANXIETY Past Surgical History: Reviewed- Non-Contributory -: Appendectomy -: TONSILLECTOMY -: Cholecystectomy -: HYSTERECTOMY - Social History Smoking Status: Never smoker Review of Systems 10-point ROS is otherwise unremarkable Physical Examination - Vital Signs Temperature: 98.2 F Blood Pressure: 98/56 Pulse: 68 Respirations: 18 Pulse Ox (%): 94 - Physical Exam General: Alert, In no apparent distress HEENT: Atraumatic, Normocephalic Neck: Supple Respiratory: Clear to auscultation bilaterally, Normal air movement Cardiovascular: Regular rate/rhythm, Normal S1 S2 Capillary refill: <2 Seconds Gastrointestinal: Non-distended, W/out hepatosplenomegaly Musculoskeletal: No clubbing, No swelling Integumentary: No rashes, No breakdown Neurological: Other (Alert awake nonfocal) Lymphatics: No axilla or inguinal lymphadenopathy - Studies Laboratory Data (last 24 hrs) 08/27/24 08/27/24 08/27/24 20:30 20:19 20:19 WBC 7.90 Hgb 14.3 Hct 44.0 Plt Count 173 PT 11.5 INR 1.03 APTT 21.9 L Sodium 136 Potassium 4.3 BUN 38 H Creatinine 1.18 H Glucose 126 H Magnesium 2.1 Total Bilirubin 0.7 AST 69 H ALT 48 Alkaline Phosphatase 98 Assessment and Plan - Plan Multiple falls CT of head, cervical spine, abdomen pelvis are within normal limits Patient lives alone Will get a PT evaluation May need placement/home health Will await further recommendation from PT Hypertension Antihypertensives titrated Continue home medications and titrate as needed Alzheimer's disease Continue home medications and supportive management CKD stage II Monitor renal parameters Electrolytes monitor and replace accordingly Diabetes Insulin sliding scale Accu-Chek before every meal and at bedtime GI/DVT prophylaxis Advanced directive full code Discharge Plan: Jail Plan to discharge in: 48 Hours - Advance Directives Does patient have a Living Will: No Does patient have a Durable POA for Healthcare: Yes Time Spent Managing Pts Care (In Minutes): 48
[2024-08-28] MEDS: NA CHLORIDE 0.9% 1,000 ML IV SCH (02:00)
[2024-08-28 03:49] VITALS: BMI 33.6
[2024-08-28] MEDS ORDERED: NA CHLORIDE 0.9% 1,000 ML ONE (04:45)
[2024-08-28] MEDS: ENOXAPARIN 40 MG/0.4 ML SQ SCH (09:00)
[2024-08-28 09:45] LABS: Absolute Eosinophils 0.1 K/uL (0-0.5); Absolute Lymphocytes (CBC) 1.8 K/uL (0.7-4.9); Absolute Monocytes 0.6 K/uL (0.1-1.3); Absolute Neutrophil 2.8 K/uL (1.8-8.0); Basophils % 0.5 % (0-1.3); Eosinophils % 1.3 % (0-4.4); Hematocrit 36.6 % (36.0-45.0); Hemoglobin 11.8 g/dL (12.0-15.0); Lymphocytes % 34.1 % (15.3-44.8); MCH 29.9 pg (27.0-35.0); MCHC 32.3 g/dL (32.0-36.0); MCV 92.7 fL (80-100); MPV 8.5 fL (7.6-11.3); Monocytes % 11.8 % (3.3-12.3); Neutrophils % 52.3 % (41.7-73.7); Platelets 139 thou/uL (152-406); RBC Red Blood Cell Count 3.95 M/uL (3.86-4.86)
[2024-08-28 09:46] VITALS: O2SAT 99
[2024-08-28 10:04] LABS: Albumin 2.6 g/dL (3.4-5.0); Albumin/Globulin Ratio 0.6 (1.1-1.8); Anion Gap 6.9 mEq/L (5.0-15.0); Bilirubin Total 0.5 mg/dL (0.2-1.0); Globulin 4.1 g/dL (2.3-3.5); Magnesium 1.9 mg/dL (1.6-2.4); Potassium 3.9 mEq/L (3.5-5.1); Protein, Total 6.7 g/dL (6.4-8.2)
[2024-08-28] MEDS: ACETAMINOPHEN 325 MG TABLET PO PRN (11:59)
--- NOTE | 2024-08-28 11:59 | P.PN ---
Date of Service: 08/28/24 Subjective: patient seen, daughter at [facility] ([facility]) reports dementia - seems to be worsening over last few months ~1 week ago, had cold symptoms followed by weakness this lead patient to not wanting to get up, weak, dizzy, and has had falls, as well as worsening mentation multiple family members with cold/flu like symptoms patient reports feeling ok, some discomfort on left face/forehead where she had trauma/bruising ROS: 10 point ROS as noted above, otherwise negative Physical Exam: GEN: Alert, NAD HEENT: Normal conjunctiva, L forehead ecchymosis CV: Regular rate and rhythm, no edema Pulm: Nonlabored respirations on room air, clear bilaterally ABD: soft, nontender, nondistended Integumentary: No rashes Neuro: Normal speech, normal affect Problem List: Generalized weakness, frequent falls forehead hematoma Hx Alzheimer's disease / Dementia IDDM2 Hypertension Hyperlipidemia Anxiety Hx non-alcoholic Cirrhosis Generalized weakness, frequent falls forehead hematoma Hx Alzheimer's disease / Dementia presents to the ED with generalized weakness, right forehead Hematoma after he slipped and fell out of the shower prior to admission. +left forehead bruising from prior fall Poor historian. Most info obtained from chart and ER notes. BP low in 80/60s initially in ED. improved to 100s-130s after fluid bolus in ED. CT head/spine, CXR both negative for any acute findings. CT abdomen/pelvis negative. PT consult - patient lives at home alone, may benefit from SNF/HH. ambulated 125 ft with min assist- using walker confirm home meds, resume home meds as appropriate Monitor on telemetry continue IV fluids pain control check UA IDDM2 accu-cheks, SSI confirm home insulin regimen Hypertension Hyperlipidemia Anxiety Hx non-alcoholic Cirrhosis confirm home meds, restart as appropriate VTE: Lovenox Code: Full Dispo: home with home health, possibly tomorrow Time Spent Managing Pts Care (In Minutes): 55
[2024-08-28] MEDS: INSULIN REGULAR (HUMAN) 100 UNIT/ML SQ SCH (22:16)
[2024-08-29 06:30] LABS: Absolute Eosinophils 0.1 K/uL (0-0.5); Absolute Lymphocytes (CBC) 2.2 K/uL (0.7-4.9); Absolute Monocytes 0.8 K/uL (0.1-1.3); Absolute Neutrophil 4.6 K/uL (1.8-8.0); Basophils % 0.4 % (0-1.3); Eosinophils % 1.3 % (0-4.4); Hematocrit 35.2 % (36.0-45.0); MCV 91.2 fL (80-100); Neutrophils % 59.3 % (41.7-73.7); Nucleated Red Blood Cells % 0.1 % (0-0); Platelets 171 thou/uL (152-406); RBC Red Blood Cell Count 3.86 M/uL (3.86-4.86); Red Cell Distribution Width 14.6 % (12.1-15.2)
[2024-08-29 06:50] LABS: Albumin 2.6 g/dL (3.4-5.0); Albumin/Globulin Ratio 0.7 (1.1-1.8); Anion Gap 7.6 mEq/L (5.0-15.0); Bilirubin Total 0.6 mg/dL (0.2-1.0); Magnesium 1.8 mg/dL (1.6-2.4); Potassium 3.6 mEq/L (3.5-5.1); Protein, Total 6.6 g/dL (6.4-8.2)
[2024-08-29] MEDS: atenoloL 50 MG TAB PO SCH (09:49)
[2024-08-29] MEDS: DOCOSAHEXANOIC AC/EPA 1000 MG PO SCH (09:49)
[2024-08-29] MEDS: MEMANTINE HCL 10 MG TABLET PO SCH (09:50)
[2024-08-29] MEDS: ASPIRIN EC 81 MG TAB PO SCH (09:50)
[2024-08-29] MEDS: ATORVASTATIN 40 MG TAB PO SCH (09:50)
[2024-08-29] MEDS: SERTRALINE HCL 50 MG TAB PO SCH (09:51)
[2024-08-29] MEDS: DONEPEZIL HCL 5 MG TAB PO SCH (09:51)
--- NOTE | 2024-08-29 11:11 | P.PN ---
Date of Service: 08/29/24 Subjective: Patient seen on rounds this morning, daughter at bedside Reports patient is more awake/alert than she has been in the last week No worsening symptoms, no acute events overnight Patient did develop some palpitations. EKG noted likely atrial fibrillation. On review of chart, 2015 she was diagnosed with paroxysmal A-fib and started on atenolol ROS: 10 point ROS as noted above, otherwise negative Physical Exam: GEN: Alert, NAD HEENT: Normal conjunctiva, L forehead ecchymosis CV: Irregularly irregular rhythm, HR: 100, no edema Pulm: Nonlabored respirations on room air, clear bilaterally ABD: soft, nontender, nondistended Integumentary: No rashes Neuro: Normal speech, normal affect Problem List: Generalized weakness, frequent falls forehead hematoma Hx Alzheimer's disease / Dementia Hx paroxysmal a-fib IDDM2 Hypertension Hyperlipidemia Anxiety Hx non-alcoholic Cirrhosis Generalized weakness, frequent falls forehead hematoma Hx Alzheimer's disease / Dementia presents to the ED with generalized weakness, right forehead Hematoma after he slipped and fell out of the shower prior to admission. +left forehead bruising from prior fall Poor historian. Most info obtained from chart and ER notes. BP low in 80/60s initially in ED. improved to 100s-130s after fluid bolus in ED. CT head/spine, CXR both negative for any acute findings. CT abdomen/pelvis negative. PT consult - patient lives at home alone, may benefit from SNF/HH. ambulated 125 ft with min assist- using walker confirm home meds, resume home meds as appropriate Monitor on telemetry continue IV fluids pain control Hx paroxysmal a-fib 08/29 patient HR up to 120s this morning, questionable a-fib/flutter on telemetry Hx paroxysmal a-fib back in 2016 per Cardiology consult note check EKG Confirm home meds, unsure full home med list on atenolol at home, not on anticoagulation IDDM2 accu-cheks, SSI confirm home insulin regimen Hypertension Hyperlipidemia Anxiety Hx non-alcoholic Cirrhosis confirm home meds, restart as appropriate VTE: Lovenox Code: Full Dispo: home with home health Time Spent Managing Pts Care (In Minutes): 55
[2024-08-29] MEDS: NYSTATIN PWDR 100000 UNIT/GM TOP SCH (16:58)
[2024-08-29] MEDS: MAGNESIUM SULFATE 1 gm IVPB 1 GM/100 ML BAG IV ONE (16:58)
[2024-08-29] MEDS: POTASSIUM CL SA 10 MEQ TAB PO ONE (16:58)
[2024-08-30 06:35] LABS: Absolute Eosinophils 0.2 K/uL (0-0.5); Absolute Lymphocytes (CBC) 2.7 K/uL (0.7-4.9); Absolute Monocytes 1.1 K/uL (0.1-1.3); Absolute Neutrophil 4.7 K/uL (1.8-8.0); Basophils % 0.3 % (0-1.3); Eosinophils % 2.2 % (0-4.4); Hemoglobin 12.7 g/dL (12.0-15.0); Lymphocytes % 30.7 % (15.3-44.8); MCH 30.5 pg (27.0-35.0); MCHC 33.4 g/dL (32.0-36.0); MCV 91.4 fL (80-100); MPV 8.3 fL (7.6-11.3); Monocytes % 12.6 % (3.3-12.3); Neutrophils % 54.2 % (41.7-73.7); Nucleated Red Blood Cells % 0.1 % (0-0); Platelets 189 thou/uL (152-406); RBC Red Blood Cell Count 4.16 M/uL (3.86-4.86); Red Cell Distribution Width 14.6 % (12.1-15.2)
[2024-08-30 06:49] LABS: Albumin 2.7 g/dL (3.4-5.0); Albumin/Globulin Ratio 0.6 (1.1-1.8); Bilirubin Total 0.8 mg/dL (0.2-1.0); Globulin 4.2 g/dL (2.3-3.5); Magnesium 2.2 mg/dL (1.6-2.4); Protein, Total 6.9 g/dL (6.4-8.2)
--- NOTE | 2024-08-30 09:00 | P.DS ---
Admission Date: 08/28/24 Discharge Date: 08/30/24 Disposition: DC HOME/HOME HEALTH CARE Discharge Condition: GOOD Reason for Admission: Falls Brief History of Present Illness: 78yo F, PMH: Alzheimer's disease; Anxiety; Cirrhosis; Non-alcoholic; Dementia; Diabetes ,High Cholesterol; Hypertension Patient brought to ER with multiple falls and generalized weakness. Patient lives along and is a poor historian hence most of the history is obtained from the chart review and also talking to the ER physician. No fever or chills. No nausea vomiting or diarrhea. Denies any pain. Patient had a workup in the ER and had a CT of the head cervical spine abdomen pelvis which were negative for any acute changes. Hospital Course: Problem List: Generalized weakness, frequent falls forehead hematoma Hx Alzheimer's disease / Dementia Hx paroxysmal a-fib Intertrigo IDDM2 Hypertension Hyperlipidemia Anxiety Hx non-alcoholic Cirrhosis Physician discharge instructions: Patient presents to the ED with generalized weakness, forehead hematoma after she slipped and fell out of the shower prior to admission. CT head/spine, CT chest, abdomen/pelvis and chest xray were all negative for any acute findings. Patients blood pressure was noted to be low, 80/60s in ED and improved quickly after IV hydration. On further discussion with patients daughter, she describes patient's dementia has been progressively worsening over last few months, but significantly worsened over the last ~1 week. Patient developed cold-like symptoms which were accompanied/followed by symptoms of generalized weakness, dizziness, not wanting to get out of bed/chair, and increased confusion. Daughter reports multiple family members with cold/flu like symptoms at home. Patient presented to ED a few days ago, workup - labs, urine, all negative. She has remained afebrile and without leukocytosis. No evidence of bacterial infection. Patient had improvement of her mentation and weakness with IV hydration. Her cold/flu-like symptoms were improving. She worked with PT and was able to ambulate 125 ft with minimal assist and walker. Patient was feeling better, vitals stable, strength returning, and deemed stable for discharge home with home health and PT. Paroxysmal Afib On 08/29, patient was noted to be tachycardic (HR: 110s) on exam, EKG obtained consistent with afib. Review of her medical records revealed a note from 2016 when diagnosed with paroxysmal afib and started on atenolol. Given her acute illness/weakness, and missing atenolol for 1 day here, and at home, all contributed to her brief afib. She was restarted on her home medications, monitored an additional night, and was noted to convert back to normal sinus rhythm. She was not previously on anticoagulation, and after discussion with patient's daughter who is INDU, given her recent falls and balance issues, will hold off on starting anticoagulation for stroke prevention secondary to afib. Recommended to follow up with PCP and Cardiology to have further discussion of risks/benefits in the near future. Blood pressure Hypotension resolved with IV fluids, and history/exam consistent with hypovolemia. Blood pressure remained in low-normal range off her blood pressure medications. For now, recommended holding losartan and amlodipine until blood pressure is higher. Intertrigo noted to have intertrigonous rash in bilateral inguinal folds. Prescribed ketoconazole cream. Advised keeping area clean/dry Diabetes glucose levels ranged from 110-190 off her home farxiga. (fasting g, 131) recommend holding this medication, monitor blood glucose levels, and follow up closely with PCP to discuss further. Consideration for alternate medication if appropriate, given her risk of dehydration, current intertrigo Medications: Ketoconazole cream to bilateral groin rash - until resolved Hold amlodipine and losartan. Check daily blood pressures at same time each day, keep a log. Once systolic blood pressure consistently > 150 , restart losartan. Otherwise, follow up with PCP in next few days to continue to monitor and for any further adjustments. hold farxiga Follow up: PCP 3-5 days Cardiology Neurology Please call to schedule / confirm appointments Physical Exam: GEN: Alert, NAD HEENT: Normal conjunctiva, Left forehead ecchymosis CV: regular rate and rhythm, no edema Pulm: Nonlabored respirations on room air, clear bilaterally ABD: soft, nontender, nondistended Integumentary: No rashes Neuro: Normal speech, normal affect Vital Signs/Physical Exam: Temp Pulse Resp BP Pulse Ox 97.8 F 60 12 93/56 L 96 08/30/24 08:00 08/30/24 08:31 08/30/24 08:00 08/30/24 08:31 08/30/24 08:00 Laboratory Data at Discharge: WBC 8.70 thou/uL (4.3-10.9) 08/30/24 05:43 Hgb 12.7 g/dL (12.0-15.0) 08/30/24 05:43 Hct 38.0 % (36.0-45.0) 08/30/24 05:43 Plt Count 189 thou/uL (152-406) 08/30/24 05:43 PT 11.5 SECONDS (9.4-12.5) 08/27/24 20:30 INR 1.03 08/27/24 20:30 APTT 21.9 SECONDS (24.3-36.9) L 08/27/24 20:30 Sodium 135 mEq/L (136-145) L 08/30/24 05:43 Potassium 4.0 mEq/L (3.5-5.1) 08/30/24 05:43 BUN 17 mg/dL (7-18) 08/30/24 05:43 Creatinine 0.79 mg/dL (0.55-1.02) 08/30/24 05:43 Glucose 139 mg/dL (74-106) H 08/30/24 05:43 Magnesium 2.2 mg/dL (1.6-2.4) 08/30/24 05:43 Total Bilirubin 0.8 mg/dL (0.2-1.0) 08/30/24 05:43 AST 27 U/L (15-37) 08/30/24 05:43 ALT 26 U/L (13-56) 08/30/24 05:43 Alkaline Phosphatase 81 U/L (45-117) 08/30/24 05:43 Home Medications: Dapagliflozin Propanediol [Farxiga] 10 mg PO BEDTIME 05/08/22 Amlodipine [Norvasc*] 10 mg PO DAILY 08/28/24 Ascorbic Acid [Vitamin C*] 500 mg PO DAILY 08/28/24 Aspirin [Aspirin EC] 81 mg PO DAILY 08/28/24 Atenolol [Tenormin] 100 mg PO DAILY 08/28/24 Atorvastatin Calcium [Lipitor] 40 mg PO DAILY 08/28/24 Cholecalciferol (Vitamin D3) [Vitamin D3] 1 tab PO DAILY 08/28/24 Docosahexanoic AC/Epa [Fish Oil 1,000 MG*] 1,000 mg PO DAILY 08/28/24 Donepezil HCl 10 mg PO DAILY 08/28/24 Losartan Potassium [Cozaar] 100 mg PO DAILY 08/28/24 Melatonin 10 mg PO DAILY 08/28/24 Memantine HCl 10 mg PO DAILY 08/28/24 Sertraline [Zoloft*] 25 mg PO DAILY 08/28/24 Ketoconazole [Nizoral] 60 gm TP BID 14 Days #2 tube 08/30/24 New Medications: Ketoconazole [Nizoral] 60 gm TP BID 14 Days #2 tube Physician Discharge Instructions: Physician discharge instructions: Patient presents to the ED with generalized weakness, forehead hematoma after she slipped and fell out of the shower prior to admission. CT head/spine, CT chest, abdomen/pelvis and chest xray were all negative for any acute findings. Patients blood pressure was noted to be low, 80/60s in ED and improved quickly after IV hydration. On further discussion with patients daughter, she describes patient's dementia has been progressively worsening over last few months, but significantly worsened over the last ~1 week. Patient developed cold-like symptoms which were accompanied/followed by symptoms of generalized weakness, dizziness, not wanting to get out of bed/chair, and increased confusion. Daughter reports multiple family members with cold/flu like symptoms at home. Patient presented to ED a few days ago, workup - labs, urine, all negative. She has remained afebrile and without leukocytosis. No evidence of bacterial infection. Patient had improvement of her mentation and weakness with IV hydration. Her cold/flu-like symptoms were improving. She worked with PT and was able to ambulate 125 ft with minimal assist and walker. Patient was feeling better, vitals stable, strength returning, and deemed stable for discharge home with home health and PT. Paroxysmal Afib On 08/29, patient was noted to be tachycardic (HR: 110s) on exam, EKG obtained consistent with afib. Review of her medical records revealed a note from 2016 when diagnosed with paroxysmal afib and started on atenolol. Given her acute illness/weakness, and missing atenolol for 1 day here, and at home, all contributed to her brief afib. She was restarted on her home medications, monitored an additional night, and was noted to convert back to normal sinus rhythm. She was not previously on anticoagulation, and after discussion with patient's daughter who is MPOA, given her recent falls and balance issues, will hold off on starting anticoagulation for stroke prevention secondary to afib. Recommended to follow up with PCP and Cardiology to have further discussion of risks/benefits in the near future. Blood pressure Hypotension resolved with IV fluids, and history/exam consistent with hypovolemia. Blood pressure remained in low-normal range off her blood pressure medications. For now, recommended holding losartan and amlodipine until blood pressure is higher. Intertrigo noted to have intertrigonous rash in bilateral inguinal folds. Prescribed ketoconazole cream. Advised keeping area clean/dry Diabetes glucose levels ranged from 110-190 off her home farxiga. (fasting g, 131) recommend holding this medication, monitor blood glucose levels, and follow up closely with PCP to discuss further. Consideration for alternate medication if appropriate, given her risk of dehydration, current intertrigo Medications: Ketoconazole cream to bilateral groin rash - until resolved Hold amlodipine and losartan. Check daily blood pressures at same time each day, keep a log. Once systolic blood pressure consistently > 150 , restart losartan. Otherwise, follow up with PCP in next few days to continue to monitor and for any further adjustments. hold farxiga Follow up: PCP 3-5 days Cardiology Neurology Please call to schedule / confirm appointments Followup: NONE,NONE [Primary Care Provider] - Time spent managing pt's care (in minutes): 45
[2024-08-30 14:12] VITALS: BP 120/60; TEMP 97.9
--- NOTE | 2024-08-31 12:06 | EKG ---
Test Date: 2024-08-27 Test Time: 22:19:30 Counter Weigher: MEASUREMENT RESULTS: Intervals: Rate: 64 AK: 178 QRSD: 88 QT: 448 QTc: 462 Apex: P: 59 AK: 178 QRS: 44 T: 43 INTERPRETIVE STATEMENTS: Sinus rhythm with premature atrial complexes Otherwise normal ECG Compared to ECG 08/22/2024 10:40:23 No significant changes Electronically Signed On 08-31-24 12:02:28 CRANE LADLE PERSON by Scotty Santamaria
== END 2024-08-30 13:45 | disposition home health service (06) | DRG 605 ==
LOC: ER 19:49 → ERHOLD 08-28 01:20 → 4TH 08-28 08:26 → OBSVTOIN 08-28 17:02
PROVIDERS: ADMIT Family Medicine; ATTEND Hospitalist
DX: S00.83XA Contusion of other part of head, initial encounter (principal); F02.84 Dementia in other diseases classified elsewhere, unspecified severity, with anxiety; G30.9 Alzheimer's disease, unspecified; E78.00 Pure hypercholesterolemia, unspecified; I48.0 Paroxysmal atrial fibrillation; E86.9 Volume depletion, unspecified; I12.9 Hypertensive chronic kidney disease with stage 1 through stage 4 chronic kidney disease, or unspecified chronic kidney disease; N18.2 Chronic kidney disease, stage 2 (mild); E11.22 Type 2 diabetes mellitus with diabetic chronic kidney disease; L30.4 Erythema intertrigo; E86.1 Hypovolemia; K70.30 Alcoholic cirrhosis of liver without ascites; S09.90XA Unspecified injury of head, initial encounter; R53.1 Weakness; R29.6 Repeated falls; Z79.4 Long term (current) use of insulin; Z60.2 Problems related to living alone; Z88.1 Allergy status to other antibiotic agents; Z88.8 Allergy status to other drugs, medicaments and biological substances; Z90.49 Acquired absence of other specified parts of digestive tract; Z79.899 Other long term (current) drug therapy; Z90.710 Acquired absence of both cervix and uterus; W01.0XXA Fall on same level from slipping, tripping and stumbling without subsequent striking against object, initial encounter; Y92.012 Bathroom of single-family (private) house as the place of occurrence of the external cause; Y93.01 Activity, walking, marching and hiking; Y99.9 Unspecified external cause status
CPT/HCPCS: 36415; 70450; 71045; 71250; 72125; 74176; 80048; 80053; 80076; 82947; 83735; 83880; 84484; 85025; 85610; 85730; 87804; 93005; 97116; 97161; 97530; 99284; G0378; J1650; J3475; J7030

== ENCOUNTER 2024-09-26 19:01 | Emergency (ER) | payer OTHER ==
--- NOTE | 2024-09-26 19:34 | ER ---
Nurse's Notes [facility] Name: Marilynn Hartman Age: 78 yrs Sex: Female : 1945 Arrival Date: 09/26/2024 Time: 19:01 Bed 8 Private MD: Diagnosis: Essential (primary) hypertension;Encounter for examination of blood pressure without abnormal findings Presentation: 09/26 19:11 Chief complaint: EMS states: patient family states that her blood pressure was high and al5 was having a cold shake. normally when asked if she wants to go to the hospital, she says no, this time she said that it was okay. Coronavirus screen: At this time, the client does not indicate any symptoms associated with coronavirus-19. Ebola Screen: No symptoms or risks identified at this time. Initial Sepsis Screen: Does the patient meet any 2 criteria? HR > 90 bpm. No. Patient's initial sepsis screen is negative. Does the patient have a suspected source of infection? No. Patient's initial sepsis screen is negative. Risk Assessment: Do you want to hurt yourself or someone else? Patient reports no desire to harm self or others. Onset of symptoms was September 26, 2024. 19:11 Method Of Arrival: EMS: [facility] al5 19:11 Acuity: KAROL 3 al5 Triage Assessment: 19:15 General: Appears in no apparent distress. comfortable, Behavior is calm, cooperative. al5 Pain: Denies pain. EENT: No signs and/or symptoms were reported regarding the EENT system. Neuro: Level of Consciousness is awake, alert, obeys commands, Oriented to baseline hx of dementia. Cardiovascular: Capillary refill < 3 seconds Patient's skin is warm and dry. Respiratory: Airway is patent Respiratory effort is even, unlabored, Respiratory pattern is regular, symmetrical. GI: No signs and/or symptoms were reported involving the gastrointestinal system. : No signs and/or symptoms were reported regarding the genitourinary system. Derm: Skin is intact, Skin is pink, warm \T\ dry. normal. Musculoskeletal: No signs and/or symptoms reported regarding the musculoskeletal system. Historical: - Allergies: 19:15 Bactrim; al5 19:15 Biaxin; al5 19:15 Folic Acid; al5 19:15 Iodine; al5 19:15 Iuqzvzr-Osu-Oop Reductase Inhibitors; al5 - Home Meds: 19:15 amlodipine 2.5 mg tab 1 tab once daily [Active]; atenolol 100 mg Oral tab [Active]; al5 Januvia Oral [Active]; losartan 50 mg Oral tab 1 tab 2 times per day [Active]; metformin 500 mg Oral TbER 1 tab twice a day [Active]; omeprazole 40 mg Oral cpDR 1 cap once daily [Active]; - PMHx: 19:15 Alzheimer's disease; Anxiety; Cirrhosis; Non-alcoholic; Dementia; Diabetes - NIDDM; al5 High Cholesterol; Hypertension; - Immunization history:: Adult Immunizations up to date. - Infectious Disease History:: Denies. - Social history:: Smoking status: Patient denies any tobacco usage or history of. Screenin:17 [facility] ED Fall Risk Assessment (Adult) History of falling in the last 3 months, al5 including since admission No falls in past 3 months (0 pts) Confusion or Disorientation No (0 pts) Intoxicated or Sedated No (0 pts) Impaired Gait Yes (1 pt) Mobility Assist Device Used No (0 pt) Altered Elimination Yes (1 pt) Score/Fall Risk Level 3 or more points = High Risk Oriented to surroundings, Maintained a safe environment, Hourly rounding (assess needs \T\ fall precautionary measures) done, Utilized family, sitter, or virtual ela teacher as indicated. Abuse screen: Denies threats or abuse. Denies injuries from another. Nutritional screening: No deficits noted. Tuberculosis screening: No symptoms or risk factors identified. Assessment: 19:16 Reassessment: see triage assessment. al5 20:19 Reassessment: Patient appears in no apparent distress at this time. No changes from al5 previously documented assessment. Patient and/or family updated on plan of care and expected duration. Pain level reassessed. Patient is alert, oriented x 3, equal unlabored respirations, skin warm/dry/pink. pt family on the way to pick patient up. patient given discharge instructions and wheelchair out to lobby with nice fresh warm blanket. Vital Signs: 19:11 BP 123 / 77; Pulse 92; Resp 16; Temp 97.3; Pulse Ox 100% on R/A; Weight 84.37 kg; al5 Height 5 ft. 4 in. ; Pain 0/10; 19:15 BP 114 / 64; Pulse 90; Resp 15; Pulse Ox 97% on R/A; al5 19:30 BP 103 / 73; Pulse 91; Resp 15; Pulse Ox 97% on R/A; al5 20:00 BP 103 / 68; Pulse 96; Resp 16; Pulse Ox 96% on R/A; al5 19:11 Body Mass Index 31.93 (84.37 kg, 162.56 cm) al5 19:11 Pain Scale: Adult al5 ED Course: 19:11 Patient arrived in ED. al5 19:12 Juan Peter MD is Attending Physician. bo1 19:15 Triage completed. al5 19:16 Arm band placed on right wrist. Patient placed in the treatment room, on a stretcher, al5 on pulse oximetry. 19:18 Patient has correct armband on for positive identification. Bed in low position. Call al5 light in reach. Side rails up X2. Provided Education on: plan of care. 19:18 No provider procedures requiring assistance completed. al5 20:15 Gilda Melendrez, RN is Primary Nurse. al5 20:21 Patient did not have IV access during this emergency room visit. al5 Administered Medications: No medications were administered Medication: 19:17 VIS not applicable for this client. al5 Outcome: 19:33 Discharge ordered by . bo1 20:21 Discharged to home via wheelchair, with family, al5 20:21 Condition: good 20:21 Discharge instructions given to patient, Instructed on discharge instructions, follow up and referral plans. Demonstrated understanding of instructions, follow-up care, 20:21 Patient left the ED. al5 Signatures: Juan Peter MD MD [facility] Gilda Melendrez, RN RN al5
--- NOTE | 2024-09-26 19:34 | EDPHYS ---
Physician Documentation [facility] Name: Marilynn Hartman Age: 78 yrs Sex: Female : 1945 Arrival Date: 09/26/2024 Time: 19:01 Bed 8 Private MD: ED Physician Juan Peter HPI: 09/26 19:25 This 78 yrs old Female presents to ER via EMS with complaints of High Blood Pressure. bo1 19:25 Onset: The symptoms/episode began/occurred today. Associated signs and symptoms: The bo1 patient has no apparent associated signs or symptoms. 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 Currently BP is normal.. Pt has home machine and it read high BP readings. No symptoms of CP or SOB. Historical: - Allergies: 19:15 Bactrim; al5 19:15 Biaxin; al5 19:15 Folic Acid; al5 19:15 Iodine; al5 19:15 Dpdkznp-Uux-Lfo Reductase Inhibitors; al5 - Home Meds: 19:15 amlodipine 2.5 mg tab 1 tab once daily [Active]; atenolol 100 mg Oral tab [Active]; al5 Januvia Oral [Active]; losartan 50 mg Oral tab 1 tab 2 times per day [Active]; metformin 500 mg Oral TbER 1 tab twice a day [Active]; omeprazole 40 mg Oral cpDR 1 cap once daily [Active]; - PMHx: 19:15 Alzheimer's disease; Anxiety; Cirrhosis; Non-alcoholic; Dementia; Diabetes - NIDDM; al5 High Cholesterol; Hypertension; - Immunization history:: Adult Immunizations up to date. - Infectious Disease History:: Denies. - Social history:: Smoking status: Patient denies any tobacco usage or history of. ROS: 19:27 Constitutional: Negative for fever, chills, and weight loss bo1 19:27 Constitutional: Negative for fever, bo1 19:27 Neck: Negative for pain at rest, 19:27 Cardiovascular: Negative for chest pain, palpitations, 19:27 Respiratory: Negative for cough, shortness of breath, 19:27 Abdomen/GI: Negative for abdominal pain, 19:27 MS/extremity: Positive for swelling, Hx of swelling for a long time, 19:27 Skin: Negative for rash, 19:27 Neuro: Negative for altered mental status, headache, Pt is A\T\O x 3, 19:27 All other systems are negative, Exam: 19:28 Constitutional: This is a well developed, well nourished patient who is awake, alert, bo1 and in no acute distress. 19:28 Constitutional: The patient appears in no acute distress, alert, awake, comfortable, 19:28 Eyes: Sclera: no acute changes, 19:28 Neck: External neck: is normal, no acute changes, 19:28 Cardiovascular: Exam negative for acute changes, Rate: normal, Rhythm: regular, Pulses: no pulse deficits are appreciated, 19:28 Respiratory: Exam negative for the patient does not display signs of respiratory distress, Respirations: normal, Breath sounds: are clear throughout, 19:28 Abdomen/GI: Palpation: abdomen is soft and non-tender, 19:28 Musculoskeletal/extremity: Extremities: all appear grossly normal, with no appreciated pain with palpation, Mild non-pitting edema to the LE - bilaterally, 19:28 Skin: Warm and dry. 19:28 Neuro: Exam negative for acute changes, Orientation: is normal, appropriate for stated age, no acute changes, Mentation: is normal, appropriate for stated age, no acute changes, No AMS, A\T\O x 3, Vital Signs: 19:11 BP 123 / 77; Pulse 92; Resp 16; Temp 97.3; Pulse Ox 100% on R/A; Weight 84.37 kg; al5 Height 5 ft. 4 in. ; Pain 0/10; 19:15 BP 114 / 64; Pulse 90; Resp 15; Pulse Ox 97% on R/A; al5 19:30 BP 103 / 73; Pulse 91; Resp 15; Pulse Ox 97% on R/A; al5 20:00 BP 103 / 68; Pulse 96; Resp 16; Pulse Ox 96% on R/A; al5 19:11 Body Mass Index 31.93 (84.37 kg, 162.56 cm) al5 19:11 Pain Scale: Adult al5 MDM: 19:12 Medical Screening Exam initiated bo1 19:30 Differential diagnosis: hypertensive crisis, Home BP machine error or malfunction. Data bo1 reviewed: vital signs, x two spaced apart readings. ED course: Pt agrees to go home and will get a new machine with appropriate sized BP cuff or compare her machine with her PCP at next appt. Administered Medications: No medications were administered Disposition Summary: 09/26/24 19:33 Discharge Ordered Notes: Location: Home bo1 Problem: an acute exacerbation bo1 Symptoms: have improved bo1 Condition: Stable bo1 Diagnosis - Essential (primary) hypertension bo1 - Encounter for examination of blood pressure without abnormal findings bo1 Followup: bo1 - With: Private Physician - When: Upon discharge from the Emergency Department - Reason: Recheck today's complaints, Continuance of care Discharge Instructions: - Discharge Summary Sheet bo1 - How to Take Your Blood Pressure, [id number] bo1 - Form - Blood Pressure Record Sheet bo1 Forms: - Medication Reconciliation Form bo1 - Antibiotic Education bo1 - Prescription Opioid Use bo1 - Patient Portal Instructions bo1 - Leadership Thank You Letter bo1 Signatures: Juan Peter MD MD bo1 Gilda Melendrez RN RN al5
[2024-09-26 20:37] VITALS: TEMP 97.3
[2024-09-26 20:42] VITALS: BP 103/68; O2SAT 96
== END 2024-09-26 20:21 | disposition home or self-care (01) ==
LOC: ER 19:01
DX: Z01.30 Encounter for examination of blood pressure without abnormal findings (principal); I10 Essential (primary) hypertension; G30.9 Alzheimer's disease, unspecified; F02.80 Dementia in other diseases classified elsewhere, unspecified severity, without behavioral disturbance, psychotic disturbance, mood disturbance, and anxiety; F41.9 Anxiety disorder, unspecified; K74.60 Unspecified cirrhosis of liver; E11.9 Type 2 diabetes mellitus without complications; E78.00 Pure hypercholesterolemia, unspecified; Z88.1 Allergy status to other antibiotic agents; Z91.048 Other nonmedicinal substance allergy status; Z88.8 Allergy status to other drugs, medicaments and biological substances
CPT/HCPCS: 99283